=== PATIENT | female | born 1940 | race Caucasian/White ===

== ENCOUNTER → 2017-07-02 10:40 | Outpatient (CLI) | payer MEDICARE, SELFPAY ==
--- NOTE | 2017-07-02 10:46 | CDU_ITS ---
Reason For Study: Carotid stenosis Rt. Velocities/BP Lt. Velocities/BP Prox CCA 93.5/14.7 cm/sec. Prox CCA 119.0/18.9 cm/sec. Mid CCA 103.0/20.2 cm/sec. Mid CCA 108.0/18.9 cm/sec. Dist CCA 126.0/33.0 cm/sec. Dist CCA 113.0/18.1 cm/sec. Prox ICA 85.0/16.4 cm/sec. Prox ICA 141.0/23.6 cm/sec. Mid ICA 93.3/19.9 cm/sec. Mid ICA 100.0/19.6 cm/sec. Dist ICA 115.0/26.1 cm/sec. Dist ICA 121.0/24.1 cm/sec. Rt. ICA/CCA = .91. Lt. ICA/CCA = 1.3. Prox ECA 185.0/21.6 cm/sec. Prox ECA 317.0/31.4 cm/sec. Rt. Vert. 67.6/14.1 cm/sec. Lt. Vert. 58.9/14.1 cm/sec. Right Extracranial There is homogeneous, irregular atherosclerotic plaque noted in the right common carotid artery. There is heterogeneous, irregular atherosclerotic plaque noted in the right internal carotid artery. There is homogeneous, smooth atherosclerotic plaque noted in the right external carotid artery. Antegrade flow is noted in the right vertebral artery. Left Extracranial There is intimal thickening but no significant atherosclerotic plaque noted in the left common carotid artery. There is heterogeneous, irregular atherosclerotic plaque noted in the left internal carotid artery. There is heterogeneous, irregular atherosclerotic plaque noted in the left external carotid artery. Antegrade flow is noted in the left vertebral artery. Procedure Carotid Duplex [id number]. Exam performed in department. Interpretation Summary Mild (<50%) stenosis right extracranial internal carotid. Mild (<50%) stenosis left extracranial internal carotid. Flow within the vertebral arteries is antegrade bilaterally. Elevated velocities within the left external carotid artery are suggestive of stenosis. Ordering Physician: Tito Goldsmith Referring Physician: Tito Goldsmith Performed By: Christi Rivera RVT
== END ==
PROVIDERS: Family Provider Family Medicine; PCP Family Medicine; Visit Provider Ophthalmology
DX: I65.23 Occlusion and stenosis of bilateral carotid arteries (principal)
CPT/HCPCS: 93880

== ENCOUNTER 2021-07-14 13:43 | Outpatient (CLI) | payer MEDICARE, SELFPAY ==
[2021-07-14 14:26] LABS: Absolute Lymphocyte Count 2.12 X10^3/uL (0.83-4.51); Absolute Neutrophil Count 6.8 X10^3/uL (2.0-7.7); Basophil# 0.08 X10^3/uL; Basophil% 0.8 % (0-1); Hematocrit 36.6 % (37-47); Hemoglobin 12.9 g/dL (12.0-15.0); Lymphocyte # 2.12 X10^3/ul (0.83-4.51); Lymphocyte % 20.9 % (19-41); Mean Corp Hgb Conc 35.2 g/dL (32-36); Mean Corpuscular Hgb 33.9 pg (27.0-32.0); Mean Corpuscular Volume 96.1 fL (81-99); Mean Platelet Vol. 9.9 fl (6.2-12.0); Monocyte# 0.78 X10^3/uL; Monocyte% 7.7 % (0-10); NRBC Flagged by Analyzer 0 % (0-5); Neutrophil % 67.2 % (47-70); Platelet Count 345 K/mm3 (150-450); RBC Distribution Width CV 13.8 % (11.6-14.6); RBC Distribution Width SD 48.8 fl (35.1-43.9); Red Blood Count 3.81 M/mm3 (4.2-5.4); White Blood Count 10.1 K/mm3 (4.4-11.0)
[2021-07-14 14:58] LABS: Anion Gap 5 (5-15); BUN 19 mg/dL (7-18); Calcium,Total 9.5 mg/dL (8.5-10.1); Chloride 109 mmol/L (98-107); Creatinine, Serum 0.86 mg/dL (0.55-1.02); EST Glomerular Filtration Rate 67 mL/min (>60); Est Glom Filt Rate - Afr Amer 81 mL/min (>60); Glucose 123 mg/dL (74-106); Potassium 3.6 mmol/L (3.5-5.1); Sodium Level 141 mmol/L (136-145)
== END 2021-07-14 23:59 | disposition home or self-care (01) ==
PROVIDERS: PCP Family Medicine; Visit Provider Specialist
DX: Z01.818 Encounter for other preprocedural examination (principal)
CPT/HCPCS: 36415; 80048; 85025

== ENCOUNTER 2022-01-22 06:17 | Observation (INO) | payer MEDICARE, SELFPAY ==
[2022-01-22] VITALS (11 sets, daily range): BP systolic 123–199; BP diastolic 60–104; PULSE 69–100; RESP 14–18; TEMP 36.5–37; O2SAT 94–100; BMI 27.8
--- NOTE | 2022-01-22 06:32 | EDS_ITS ---
HPI History of Present Illness Chief Complaint: Chest Pain Informant: patient Onset/Context/Timing Onset: Weeks (3 weeks) Timing: Intermittent Quality: Positive for Tightness Location: Substernal Current Severity: Gone Maximum Severity: Moderate Narrative Narrative: Patient presents secondary to chest pain. She states been having pain for the last 3 weeks or was worse overnight. She does notice it when she is active such as walking up a hill. She will get short of breath and break out a slight sweat. Symptoms improve when she sits at rest. Patient is tearful and anxious about her symptoms. She did not denies known history of coronary vascular disease. She does have a history of paroxysmal A. fib but is not on anticoagulants. [facility] Medical History Atrial fibrillation Collagen vascular disease Hypertension Hypothyroidism Raynauds disease Home Medications alendronate 70 mg tablet 70 mg PO QWEEK 01/22/22 [History Last Taken Unknown] aspirin 81 mg chewable tablet 81 mg PO DAILY 01/22/22 [History Last Taken Unknown] calcium carbonate 600 mg-vitamin D3 5 mcg (200 unit) tablet tab 01/22/22 [History Last Taken Unknown] famotidine 40 mg tablet 40 mg PO QHS 01/22/22 [History Last Taken Unknown] levothyroxine 25 mcg tablet (Synthroid) 25 mcg PO DAILY 01/22/22 [History Last Taken Unknown] metoprolol succinate 25 mg tablet,extended release 24 hr 25 mg PO DAILY 01/22/22 [History Last Taken Unknown] pantoprazole 40 mg tablet,delayed release 40 mg PO DAILY 01/22/22 [History Last Taken Unknown] red yeast rice 600 mg capsule 600 mg PO BID 01/22/22 [History Last Taken Unknown] Allergy/AdvReac Type Severity Reaction Status Date / Time iodine Allergy Unknown Verified 01/22/22 06:21 Sulfa (Sulfonamide Allergy Unknown Verified 01/22/22 06:21 Antibiotics) seafood Allergy Other Uncoded 10/17/13 18:56 Social History Smoking Status: Never smoker ROS ROS ED Constitutional Constitutional ED: Denies chills or fever(s) Eyes Eyes: Denies change in vision or discharge from eye(s) ENT ENT ED: Denies discharge from eye(s), rhinorrhea or sore throat Cardiovascular Cardiovascular: Reports chest pain; Denies palpitations Respiratory/Chest Respiratory/Chest: Reports dyspnea; Denies cough Gastrointestinal Gastrointestinal: Denies abdominal pain, nausea or vomiting Genitourinary Genitourinary ED: Denies dysuria Musculoskeletal Musculoskeletal: Denies back pain or extremity pain Integumentary Denies Abrasions or rash Neurologic Neurologic: Denies headache(s) or weakness Psychiatric Psychiatric: Reports anxiety Allergic/Immunologic Allergic/Immunologic ED: Denies lip swelling or urticaria EXAM Physical Exam Const Vital Signs: 01/22/22 06:18 01/22/22 06:40 Temperature 97.9 F Temperature Source Temporal Pulse Rate 100 Respiratory Rate 16 Blood Pressure 185/71 H Blood Pressure Mean 109 Pulse Ox 94 Oxygen Delivery Method Room Air Room Air Positive well nourished and well developed General Appearance ED: well developed HEENT Reports normocephalic and head/scalp atraumatic Eyes PERRL and EOMs intact bilaterally Neck supple Chest Wall inspection of chest normal and palpation of chest normal Resp normal respiratory effort and clear to auscultation bilaterally Cardio regular rate and regular rhythm GI normal to inspection, nondistended, normoactive bowel sounds Palpation: soft Extremity normal to inspection Neuro oriented x3 and no sensory deficits noted Sensorium / Orientation: alert Motor Exam: strength 5/5 throughout Psych Mood & Affect: anxious and tearful Skin no rashes or lesions noted Heart Score History: Moderately Suspicious ECG: Nonspecific Repolarization Age: >/= 65 years Risk Factors: 1 or 2 Risk Factors Troponin: </= Normal Limit Score: 5 MDM MDM MDM Narrative Medical decision making narrative: Patient was given aspirin along with 5 mg of IV metoprolol on arrival. Lab work, EKG, chest x-ray obtained. Lab Data Attestation: I reviewed the patient's lab results. Labs: Laboratory Results - last 24 hr 01/22/22 01/22/22 06:28 06:28 WBC 11.6 H RBC 4.13 L Hgb 13.4 Hct 40.5 MCV 98.1 MCH 32.4 H MCHC 33.1 RDW Std Deviation 51.1 H RDW Coeff of Ranjeet 14.3 Plt Count 384 MPV 9.9 Immature Gran % (Auto) 0.600 Neut % (Auto) 67.2 Lymph % (Auto) 19.5 [place] % (Auto) 7.9 Eos % (Auto) 4.0 Baso % (Auto) 0.8 Absolute Neuts (auto) 7.8 H Absolute Lymphs (auto) 2.26 Nucleated RBC % 0 Sodium 140 Potassium 3.9 Chloride 105 Carbon Dioxide 27.0 Anion Gap 8 BUN 14 Creatinine 1.06 H Estim Creat Clear Calc 32.36 Est GFR (MDRD) Af Amer 64 Est GFR (MDRD) Non-Af 53 L BUN/Creatinine Ratio 13.2 Glucose 118 H Calcium 9.1 Troponin I High Sens 8 Radiography Chest X-Ray - ED: 1 View, Read by ED Physician, Normal, Heart, Lungs and Mediastinum Diagnostic Testing: Clinical Impression(s) from Imaging Studies Chest X-Ray 01/22/22 06:42 IMPRESSION: No acute cardiopulmonary disease. Electronically Signed: Luis Aguilar MD at 7:05 EDT Reading Location ID and State: [id number] / , Service support , EKG Initial EKG: Attestation: I personally reviewed and interpreted this EKG as follows: Interpretation: Sinus Rhythm (Sinus at [address] depression in the high lateral and lateral precordial leads. No old EKGs for comparison.) Treatment and Re-Evaluation Narrative: On repeat evaluation patient resting comfortably. She remains tearful and anxious. Systolic blood pressure is now in the 150s. CBC reveals a white count of 11.6. Chemistry studies unremarkable. Troponin is 8. Sounds like patient had stable angina for the first 2-2.5 weeks of her symptoms. She would get chest pain with exertion such as walking up a hill and it would resolve when she would sit to rest. Last evening she had chest pain all night with no enticing event. I am concerned that this may now be representing unstable angina. With her EKG changes I have recommended observation for further cardiac rule out. I will speak with the hospitalist. Discharge Plan Triage Chief Complaint: Chest Pain ED Provider: Indira Ramos Dx/Rx/DC Orders Clinical Impression: Angina pectoris, unstable Prescriptions: No Action pantoprazole 40 mg Tablet,Delayed Release (Dr/Ec) 40 mg PO DAILY famotidine 40 mg Tablet 40 mg PO QHS alendronate 70 mg Tablet 70 mg PO QWEEK calcium carbonate-vitamin D3 [Calcium + D] 600 mg-5 mcg (200 unit) Tablet levothyroxine [Synthroid] 25 mcg Tablet 25 mcg PO DAILY aspirin [Aspirin Child] 81 mg Tablet,Chewable 81 mg PO DAILY metoprolol succinate 25 mg Tablet Extended Release 24 Hr 25 mg PO DAILY red yeast rice 600 mg Capsule 600 mg PO BID Rx Instructions: give with meal/snack Primary Care Provider: Viky Givens Referrals: Viky Givens DO [Primary Care Provider] - Disposition Disposition: Acute Care Hospital [facility]
[2022-01-22 06:39] LABS: Absolute Lymphocyte Count 2.26 X10^3/uL (0.83-4.51); Absolute Neutrophil Count 7.8 X10^3/uL (2.0-7.7); Basophil# 0.09 X10^3/uL; Basophil% 0.8 % (0-1); Eosinophil# 0.46 X10^3/uL; Hematocrit 40.5 % (37-47); Hemoglobin 13.4 g/dL (12.0-15.0); Lymphocyte # 2.26 X10^3/ul (0.83-4.51); Lymphocyte % 19.5 % (19-41); Mean Corp Hgb Conc 33.1 g/dL (32-36); Mean Corpuscular Hgb 32.4 pg (27.0-32.0); Mean Corpuscular Volume 98.1 fL (81-99); Mean Platelet Vol. 9.9 fl (6.2-12.0); Monocyte# 0.92 X10^3/uL; Monocyte% 7.9 % (0-10); NRBC Flagged by Analyzer 0 % (0-5); Neutrophil # 7.81 X10^3/uL (2.7-7.7); Neutrophil % 67.2 % (47-70); Platelet Count 384 K/mm3 (150-450); RBC Distribution Width CV 14.3 % (11.6-14.6); RBC Distribution Width SD 51.1 fl (35.1-43.9); Red Blood Count 4.13 M/mm3 (4.2-5.4); White Blood Count 11.6 K/mm3 (4.4-11.0)
--- NOTE | 2022-01-22 06:42 | RAD_ITS ---
STUDY: X-RAY CHEST REASON FOR EXAM: Female, 82 years old. chest pain TECHNIQUE: Single AP portable view of the chest. COMPARISON: None. FINDINGS: No focal infiltrates or effusions. No pneumothorax. Normal size heart. Normal mediastinum and jignesh. Normal visualized pulmonary arteries. Normal visualized aortic arch and descending thoracic aorta. Multilevel degenerative changes of the thoracic spine. Normal visualized ribs, clavicles, and shoulders. There is no demonstrated abnormality of the visualized soft tissue structures of the upper abdomen. RAD/Chest 1 View (Portable) IMPRESSION: No acute cardiopulmonary disease. Electronically Signed: Luis Aguilar MD at 7:05 EDT Reading Location ID and State: [id number] / , Service support ,
[2022-01-22] MEDS: Metoprolol Tartrate 5 MG/5 ML Vial IV (06:47)
[2022-01-22] MEDS: Aspirin 81 MG TAB.CHEW 324 MG PO (06:47)
[2022-01-22 06:56] LABS: Anion Gap 8 (5-15); BUN 14 mg/dL (7-18); BUN/Creat Ratio 13.2 RATIO (10-20); Calcium,Total 9.1 mg/dL (8.5-10.1); Chloride 105 mmol/L (98-107); Creatinine, Serum 1.06 mg/dL (0.55-1.02); EST Glomerular Filtration Rate 53 mL/min (>60); Est Glom Filt Rate - Afr Amer 64 mL/min (>60); Estimated Creatinine Clearance 32.36 ml/min; Glucose 118 mg/dL (74-106); Potassium 3.9 mmol/L (3.5-5.1); Sodium Level 140 mmol/L (136-145); Troponin-I HS (w/2H Reflex) 8 pg/mL (3.0-54.0)
--- NOTE | 2022-01-22 07:40 | NURSING ---
PCU OBS CHEST PAIN [facility]
--- NOTE | 2022-01-22 08:24 | PCM.HP.STD ---
[facility] - General General Date of Admission: 01/22/22 Date of Service: 01/22/22 Chief Complaint: Chest pain?3 weeks, worsening on the day of admission HPI Narrative ROBERTO CARCAMO, is a 82 F who presents presents with the above. Patient has PMHX of collagen vascular disease, hypertension who has had substernal chest discomfort ongoing for 3 weeks. Chest discomfort usually radiates to the back and the arms, last for few minutes. On the night before admission, she had the same chest pain that came on around 1 AM and lasted till 3 AM. It felt like bad indigestion. She felt diaphoretic. Denied any palpitations or leg swelling orthopnea or PND. In the ED, her blood pressure was 185/71, heart rate 100, respiratory 16, temperature 97.9 F, oxygen sat was 94% on room air. WC count 11.6, hemoglobin 13.4, platelets 384, neutrophilia, sodium 140, potassium 3.9, chloride 105, bicarbonate 27, BUN 40, creatinine 1.06, previous creatinine was 0.84, glucose 118. Troponin was 8 and 9. Third troponin was pending. EKG shows no ST-T changes. Admitting chest x-ray showed no acute cardiopulmonary disease. [facility] Medical History (Updated 01/22/22 @ 13:[address] Marian Prakash MD) Atrial fibrillation Chest pain Collagen vascular disease Hypertension Hypothyroidism Raynauds disease Home Medications alendronate 70 mg tablet 70 mg PO QWEEK 01/22/22 [History Last Taken Unknown] aspirin 81 mg chewable tablet 81 mg PO DAILY 01/22/22 [History Last Taken Unknown] calcium carbonate 600 mg-vitamin D3 5 mcg (200 unit) tablet tab 01/22/22 [History Last Taken Unknown] famotidine 40 mg tablet 40 mg PO QHS 01/22/22 [History Last Taken Unknown] levothyroxine 25 mcg tablet (Synthroid) 25 mcg PO DAILY 01/22/22 [History Last Taken Unknown] metoprolol succinate 25 mg tablet,extended release 24 hr 25 mg PO DAILY 01/22/22 [History Last Taken Unknown] pantoprazole 40 mg tablet,delayed release 40 mg PO DAILY 01/22/22 [History Last Taken Unknown] red yeast rice 600 mg capsule 600 mg PO BID 01/22/22 [History Last Taken Unknown] Allergy/AdvReac Type Severity Reaction Status Date / Time iodine Allergy Unknown Verified 01/22/22 06:21 Sulfa (Sulfonamide Allergy Unknown Verified 01/22/22 06:21 Antibiotics) seafood Allergy Other Uncoded 10/17/13 18:56 Family History (Updated 01/22/22 @ 13:[address] Marian Prakash MD) Mother Hypertension Surgical History (Updated 01/22/22 @ 13:[address] Marian Prakash MD) H/O foot surgery History of section History of cholecystectomy History of hip surgery Social History (Updated 01/22/22 @ 13:[address] Marian Prakash MD) household members: spouse Smoking Status: Never smoker alcohol intake: never substance use type: does not use ROS ROS Narrative Constitutional: Denies: Anorexia, Chills, Fever, Night Sweats, Weight Change Eyes: Denies: Blurred vision, Cataracts, Conjunctivae Inflammation, Pain, Redness, Vision Change HEENT: Denies: Difficulty Hearing, Difficulty Swallowing, Head Aches, Hearing Changes, Sinus Congestion, Sinus Drainage Cardiovascular: Denies: Chest Pain, Orthopnea, Palpitations Respiratory: Denies: Cough, Shortness of breath at rest, Sputum production Gastrointestinal: Denies: Abdominal Pain, Nausea, Vomiting Genitourinary: Denies: Dysuria Musculoskeletal: Denies: Joint Pain, Joint stiffness, Joint swelling, Joint Tenderness Skin: Denies: Rash, Wounds Neurological: Denies: Numbness, Tingling, Focal weakness Vital Signs Vital Signs Vital Signs: 01/22/22 06:18 01/22/22 06:40 01/22/22 07:30 Temperature 97.9 F 98.2 F Temperature Source Temporal Oral Pulse Rate 100 77 Respiratory Rate 16 18 Blood Pressure 185/71 H 162/71 H Blood Pressure Mean 109 101 Pulse Ox 94 100 Oxygen Delivery Method Room Air Room Air Room Air Weight Weight: 68.9 kg Body Mass Index (BMI) 27.8 Physical Exam Narrative Physical exam: General: Alert, Oriented x3, Cooperative, No apparent distress HEENT: Atraumatic Oral: Moist Mucosa Neck: Supple Lungs: Clear to auscultation Cardiovascular: HS I+II, regular, no murmurs Abdomen: Bowel Sounds Present, Soft, Non Tender Extremities: No edema Skin: No rashes, No breakdown Neurological: Grossly intact Psych/Mental Status: Appropriate Results Lab / Micro Data Result Diagrams: 01/22/22 06:28 01/22/22 06:28 Labs: Laboratory Results - last 24 hr 01/22/22 06:28: WBC 11.6 H, RBC 4.13 L, Hgb 13.4, Hct 40.5, MCV 98.1, MCH 32.4 H, MCHC 33.1, RDW Std Deviation 51.1 H, RDW Coeff of Ranjeet 14.3, Plt Count 384, MPV 9.9, Immature Gran % (Auto) 0.600, Neut % (Auto) 67.2, Lymph % (Auto) 19.5, [place] % (Auto) 7.9, Eos % (Auto) 4.0, Baso % (Auto) 0.8, Absolute Neuts (auto) 7.8 H, Absolute Lymphs (auto) 2.26, Nucleated RBC % 0 01/22/22 06:28: Sodium 140, Potassium 3.9, Chloride 105, Carbon Dioxide 27.0, Anion Gap 8, BUN 14, Creatinine 1.06 H, Estim Creat Clear Calc 32.36, Est GFR (MDRD) Af Amer 64, Est GFR (MDRD) Non-Af 53 L, BUN/Creatinine Ratio 13.2, Glucose 118 H, Calcium 9.1, Troponin I High Sens 8 Radiology Impression Chest X-Ray 01/22/22 06:42 IMPRESSION: No acute cardiopulmonary disease. Electronically Signed: Luis Aguilar MD at 7:05 EDT Reading Location ID and State: [id number] / , Service support , Assessment & Plan Assessment/Plan (1) Chest pain: PLAN: Plan 1. Acute chest pain, atypical, ongoing for 3 weeks, worse on the day of admission EKG shows no ST-T changes, troponins unremarkable Chest x-ray unremarkable Admit to PCU, monitor on telemetry, trend troponin, stress test in a.m. 2. Hypertension, uncontrolled on continue metoprolol 3. Hypothyroidism, continue Synthroid 4. GERD, on PPI 5. Osteoporosis, on alendronate 6. Collagen vascular disease, not on medication 7. DVT prophylaxis -heparin subcu Charges/Coding Visit Charges OBSV E&M: 40977 Initial observation care L3
[2022-01-22 08:36] LABS: Reflex Troponin-HS? (from REC) Y
[2022-01-22 09:17] LABS: Troponin-I HS 9 pg/mL (3.0-54.0)
[2022-01-22] MEDS: Metoprolol(XL)Succ 25 MG Tablet PO (09:19)
[2022-01-22] MEDS: Pantoprazole Sodium 40 MG Tablet PO ×2 (09:20→22:02)
--- NOTE | 2022-01-22 11:04 | EKG12_ITS ---
Test Reason : AM EKG Blood Pressure : / mmHG Vent. Rate : 067 BPM Atrial Rate : 067 BPM P-R Int : 144 ms QRS Dur : 110 ms QT Int : 398 ms P-R-T Axes : 032 002 145 degrees QTc Int : 420 ms Normal sinus rhythm Left ventricular hypertrophy with repolarization abnormality ( R in aVL , [place] product ) Abnormal ECG When compared with ECG of 22-JAN-2022 11:21, MANUAL COMPARISON REQUIRED, DATA IS UNCONFIRMED Confirmed by TIANA CAZARES, MARIZA ([id number]), purchase request editor EMERITA CARL ([id number]) on 01/24/2022 12:41:51 PM Referred By: Confirmed By:MARIZA MONTIEL MD
[2022-01-22 13:09] LABS: Troponin-I HS 9 pg/mL (3.0-54.0)
[2022-01-22] MEDS: Heparin Injection (Vial) 5,000 UNIT/ML VIAL 5000 UNIT SC (22:03)
[2022-01-23] VITALS (7 sets, daily range): BP systolic 138–157; BP diastolic 52–66; PULSE 63–78; RESP 16–18; TEMP 36.4–36.7; O2SAT 97–98
--- NOTE | 2022-01-23 05:55 | EKG12_ITS ---
Test Reason : ADMITT CP Blood Pressure : / mmHG Vent. Rate : 065 BPM Atrial Rate : 065 BPM P-R Int : 134 ms QRS Dur : 092 ms QT Int : 416 ms P-R-T Axes : 022 004 072 degrees QTc Int : 432 ms Normal sinus rhythm Left ventricular hypertrophy with repolarization abnormality ( [place] product ) Abnormal ECG When compared with ECG of 22-JAN-2022 06:18, MANUAL COMPARISON REQUIRED, DATA IS UNCONFIRMED Confirmed by TIANA CAZARES, MARIZA ([id number]), marketing editor EMERITA CARL ([id number]) on 01/24/2022 12:42:16 PM Referred By: SAM Confirmed By:MARIZA MNOTIEL MD
[2022-01-23] MEDS: Aspirin 81 MG TAB.CHEW PO (06:03)
[2022-01-23] MEDS: Levothyroxine 25 MCG TABLET PO (06:03)
[2022-01-23 06:38] LABS: Absolute Lymphocyte Count 1.78 X10^3/uL (0.83-4.51); Absolute Neutrophil Count 4.3 X10^3/uL (2.0-7.7); Basophil# 0.07 X10^3/uL; Eosinophil# 0.44 X10^3/uL; Eosinophils% 6.2 % (0-5); Hemoglobin 12.6 g/dL (12.0-15.0); Lymphocyte # 1.78 X10^3/ul (0.83-4.51); Mean Corp Hgb Conc 32.3 g/dL (32-36); Mean Corpuscular Hgb 32.4 pg (27.0-32.0); Mean Corpuscular Volume 100.3 fL (81-99); Mean Platelet Vol. 10.3 fl (6.2-12.0); Monocyte# 0.55 X10^3/uL; Monocyte% 7.7 % (0-10); NRBC Flagged by Analyzer 0 % (0-5); Neutrophil # 4.25 X10^3/uL (2.7-7.7); Neutrophil % 59.7 % (47-70); Platelet Count 331 K/mm3 (150-450); RBC Distribution Width CV 14.5 % (11.6-14.6); RBC Distribution Width SD 52.9 fl (35.1-43.9); Red Blood Count 3.89 M/mm3 (4.2-5.4); White Blood Count 7.1 K/mm3 (4.4-11.0)
[2022-01-23 07:20] LABS: ALB/GLOB Ratio 0.7 RATIO (0.9-2.4); AST(SGOT) 21 U/L (15-37); Alanine Aminotransfer ALT/SGPT 24 U/L (13-56); Albumin, Serum 2.7 g/dL (3.2-5.0); Alkaline Phosphatase 45 U/L (45-117); Anion Gap 7 (5-15); BUN 15 mg/dL (7-18); BUN/Creat Ratio 17.1 RATIO (10-20); Calcium,Total 9.1 mg/dL (8.5-10.1); Chloride 108 mmol/L (98-107); Creatinine, Serum 0.88 mg/dL (0.55-1.02); EST Glomerular Filtration Rate 66 mL/min (>60); Est Glom Filt Rate - Afr Amer 79 mL/min (>60); Estimated Creatinine Clearance 38.98 ml/min; Globulin 4.1 g/dL (2.2-4.2); Glucose 90 mg/dL (74-106); Protein, Total 6.8 g/dL (6.4-8.2); Sodium Level 141 mmol/L (136-145)
[2022-01-23] MEDS: Pantoprazole Sodium 40 MG Tablet PO (09:23)
[2022-01-23] MEDS: Metoprolol(XL)Succ 25 MG Tablet PO (09:23)
--- NOTE | 2022-01-23 13:04 | STRESSREP ---
Stress Test Report Exercise stress test. 82-year-old lady with a history of chest pain. Stress protocol: Resting EKG demonstrates normal sinus rhythm with a rate of 76 bpm normal intervals are noted resting blood pressure is 168/70 mmHg. The patient exercised according to the regular David protocol for total duration of 3 minutes and 39 seconds. The maximum heart rate attained was 1 and 39 bpm which was 96% of max impacted heart rate the maximum workload was 6.1 metabolic equivalents. At rest there were no ST or T wave changes noted to suggest ischemia and at peak exercise upsloping ST changes were noted with did not meet the criteria for ischemia. No arrhythmias were noted. The peak blood pressure was 168/70 mmHg. The test was terminated due to target heart rate being achieved. Conclusion: Stress test with no EKG criteria for ischemia at a moderate workload. Good functional capacity.
--- NOTE | 2022-01-23 14:09 | DCINST_ITS ---
Discharge Instructions Diet Discharge Diet: Low fat / Low cholesterol Activity Discharge Activity: Return to Normal Activity Dressing / Incision Call your doctor if you observe: Fever of 101 or Higher, Shortness of breath, Chest pain, Increased palpitations (irregular heartbeat) and Uncontrolled pain Follow Up Care Test Results: Test results from this visit will be discussed in further detail at your follow- up appointment, if applicable. Discharge Plan Admission Admit Date/Time: 01/22/22 07:42 Primary Reason for Your Visit: Chest pain Attending Provider: Andra Mondragon Primary Care Provider: Viky Givens Consulting Providers: Marian Prakash ; Vi Rubio Instructions Patient Instructions: ED Chest Pain, Noncardiac, ED GERD (Adult) Additional Instructions / Restrictions: You had a stress test that did not show any concerning findings. Please follow up with your primary care physician within 1 week of discharge. Continue your home medications. Discharge Orders/Prescriptions Prescriptions: Continued pantoprazole 40 mg Tablet,Delayed Release (Dr/Ec) 40 mg PO DAILY famotidine 40 mg Tablet 40 mg PO QHS alendronate 70 mg Tablet 70 mg PO QWEEK calcium carbonate-vitamin D3 600 mg-5 mcg (200 unit) Tablet levothyroxine [Synthroid] 25 mcg Tablet 25 mcg PO DAILY aspirin 81 mg Tablet,Chewable 81 mg PO DAILY metoprolol succinate 25 mg Tablet Extended Release 24 Hr 25 mg PO DAILY red yeast rice 600 mg Capsule 600 mg PO BID Rx Instructions: give with meal/snack Referrals / Follow Up: Viky Givens DO [Primary Care Provider] - (Follow up with PCP upon discharge, within 1 week) Disposition Disposition (needs filled in before D/C Order can be placed): Home, Self Care
--- NOTE | 2022-01-23 14:09 | CASEMGMT ---
This RN OSWALDO to room with JENSEN form, explanation done-pt voices understanding, and signs JENSEN form. Original to chart and copy to pt. Pt voices no further questions/concerns/needs. [place] DANNA CM
--- NOTE | 2022-01-23 14:17 | PCM.DC.SUM ---
Providers Date of Admission: 01/22/22 Primary Care Physician: Dr. Viky Givens, DO Reason For Visit: CHEST PAIN Diagnosis Discharge Diagnosis (1) Chest pain: Status: Acute Code(s): R07.9 - Chest pain, unspecified Medications at Discharge Home Medications alendronate 70 mg tablet 70 mg PO QWEEK 01/22/22 aspirin 81 mg chewable tablet 81 mg PO DAILY 01/22/22 calcium carbonate 600 mg-vitamin D3 5 mcg (200 unit) tablet tab 01/22/22 famotidine 40 mg tablet 40 mg PO QHS 01/22/22 levothyroxine 25 mcg tablet (Synthroid) 25 mcg PO DAILY 01/22/22 metoprolol succinate 25 mg tablet,extended release 24 hr 25 mg PO DAILY 01/22/22 pantoprazole 40 mg tablet,delayed release 40 mg PO DAILY 01/22/22 red yeast rice 600 mg capsule 600 mg PO BID 01/22/22 Hospital Course Procedures - (Exercise stress test) Summary of Care Provided Hospital Course: Ms. Samuel is an 82 y/o female with pmh of raynauds, HTN, hypothyroidism, and HTN as well as GERD who presented to [facility] 01/22/22 with 3 weeks of CP that would go to back and arms and would last x3 minutes. Reported indigestion and diaphoresis as well. She presented due to increasing frequency of symptoms. She reports she was started on red yeast rice around the same time her symptoms started and thinks it may be that but wants to verify there was nothing else going on. She reports she only had a couple seconds of chest discomfort overnight that had no associated factors. She denies and changes in breathing, intermittent tickle in throat with weather change but no productivity in her cough. She had stress test 01/23 in the AM and there were no significant findings. Pt symptom free and discharged home in stable condition to f/u with her PCP. Discussed possible differential and she did report she already follows with GI and has had problems with reflux for years. Discussed best way to take PPI and to discuss with her physician about red yeast rice. Advised to return to the ED with any concerning signs or symptoms. Andra Mondragon MD. I personally spent 30 minutes on this discharge Physical Exam Const alert and oriented x3 General Appearance: cooperative and comfortable HEENT normocephalic and head/scalp atraumatic Eyes EOMs intact bilaterally Neck supple Resp normal respiratory effort and clear to auscultation bilaterally Cardio regular rate and regular rhythm GI soft to palpation, non-tender and non-distended Extremity normal to inspection Skin no rashes or lesions noted Neuro moves all extremities Psych affect normal Weight / BMI Weight Weight: 68.9 kg Body Mass Index (BMI) 27.8 ABG / Lab / Microbiology Data Result Diagrams: 01/23/22 05:26 01/23/22 05:26 Laboratory: Laboratory Results - last 24 hr 01/23/22 05:26: WBC 7.1, RBC 3.89 L, Hgb 12.6, Hct 39.0, MCV 100.3 H, MCH 32.4 H, MCHC 32.3, RDW Std Deviation 52.9 H, RDW Coeff of Ranjeet 14.5, Plt Count 331, MPV 10.3, Immature Gran % (Auto) 0.400, Neut % (Auto) 59.7, Lymph % (Auto) 25.0, Forrest % (Auto) 7.7, Eos % (Auto) 6.2 H, Baso % (Auto) 1.0, Absolute Neuts (auto) 4.3, Absolute Lymphs (auto) 1.78, Nucleated RBC % 0 01/23/22 05:26: Sodium 141, Potassium 4.0, Chloride 108 H, Carbon Dioxide 26.0, Anion Gap 7, BUN 15, Creatinine 0.88, Estim Creat Clear Calc 38.98, Est GFR (MDRD) Af Amer 79, Est GFR (MDRD) Non-Af 66, BUN/Creatinine Ratio 17.1, Glucose 90, Calcium 9.1, Total Bilirubin 0.40, AST 21, ALT 24, Alkaline Phosphatase 45, Total Protein 6.8, Albumin 2.7 L, Globulin 4.1, Albumin/Globulin Ratio 0.7 L D/C Instructions Discharge Diet: Low fat / Low cholesterol Call your doctor if you observe: Fever of 101 or Higher, Shortness of breath, Chest pain, Increased palpitations (irregular heartbeat) and Uncontrolled pain Meaningful Use Info Meaningful Use Diagnoses (Choose all that apply): None applicable (Non ischemic chest pain) Discharge Plan Admission Admit Date/Time: 01/22/22 07:42 Primary Reason for Your Visit: Chest pain Attending Provider: Andra Mondragon Primary Care Provider: Viky Givens Consulting Providers: Marian Prakash ; Vi Rubio Instructions Patient Instructions: ED Chest Pain, Noncardiac, ED GERD (Adult) Additional Instructions / Restrictions: You had a stress test that did not show any concerning findings. Please follow up with your primary care physician within 1 week of discharge. Continue your home medications. Discharge Orders/Prescriptions Prescriptions: Continued pantoprazole 40 mg Tablet,Delayed Release (Dr/Ec) 40 mg PO DAILY famotidine 40 mg Tablet 40 mg PO QHS alendronate 70 mg Tablet 70 mg PO QWEEK calcium carbonate-vitamin D3 600 mg-5 mcg (200 unit) Tablet levothyroxine [Synthroid] 25 mcg Tablet 25 mcg PO DAILY aspirin 81 mg Tablet,Chewable 81 mg PO DAILY metoprolol succinate 25 mg Tablet Extended Release 24 Hr 25 mg PO DAILY red yeast rice 600 mg Capsule 600 mg PO BID Rx Instructions: give with meal/snack Referrals / Follow Up: Viky Givens DO [Primary Care Provider] - (Follow up with PCP upon discharge, within 1 week) Disposition Disposition (needs filled in before D/C Order can be placed): Home, Self Care
--- NOTE | 2022-01-23 14:29 | CHAPLAIN ---
Type of Pastoral Visit _x__ Initial Visit ___ Follow-up Visit ___ On-call Visit ___ General Patient Visit ___ Spiritual Assessment ___ Family Conference ___ Bereavement ___ Rapid Response ___ Code Blue ___ Other (describe below) Pastoral Care Referral From _x__ Patient ___ Family ___ Nurse ___ Physician ___ Tablet Coater ___ Database Development Project Manager ___ Other (describe below) Sacrament/Intervention _x__ Active listening ___ Anointing ___ Muslim ___ Bereavement ___ Communion ___ Samantha exploration ___ _x__ Life review _x__ Prayer ___ Reconciliation ___ Sacrament of Sick ___ Supportive presence ___ Wedding ___ Other (describe below) Pastoral Comments patient and spouse are together in room; pt states that she is just waiting for answers from the tests she has taken; pt explains some of the last three weeks of discomfort and possible stress; patient identifies as a person of samantha in God and welcomes spiritual care support and prayer; pt talks about her family and her buddhist; no other concerns
--- NOTE | 2022-01-23 14:34 | PHA.DC.MR ---
Pharmacy Service has performed discharge medication reconciliation for this patient. The patient's discharge medication list was reviewed for discrepancies and discrepancies were resolved. Home Medications alendronate 70 mg tablet 70 mg PO QWEEK 01/22/22 aspirin 81 mg chewable tablet 81 mg PO DAILY 01/22/22 calcium carbonate 600 mg-vitamin D3 5 mcg (200 unit) tablet tab 01/22/22 famotidine 40 mg tablet 40 mg PO QHS 01/22/22 levothyroxine 25 mcg tablet (Synthroid) 25 mcg PO DAILY 01/22/22 metoprolol succinate 25 mg tablet,extended release 24 hr 25 mg PO DAILY 01/22/22 pantoprazole 40 mg tablet,delayed release 40 mg PO DAILY 01/22/22 red yeast rice 600 mg capsule 600 mg PO BID 01/22/22
== END 2022-01-23 14:11 | disposition home or self-care (01) ==
LOC: ED 07:18 → PCU 07:42
PROVIDERS: Admitting Provider Internal Medicine; Emergency Provider Emergency Medicine; PCP Family Medicine; Visit Provider Internal Medicine
DX: R07.89 Other chest pain (principal); I48.0 Paroxysmal atrial fibrillation; I10 Essential (primary) hypertension; Z79.83 Long term (current) use of bisphosphonates; Z79.82 Long term (current) use of aspirin; Z79.899 Other long term (current) drug therapy; E03.9 Hypothyroidism, unspecified; Z79.890 Hormone replacement therapy; K21.9 Gastro-esophageal reflux disease without esophagitis; I73.00 Raynaud's syndrome without gangrene; M81.0 Age-related osteoporosis without current pathological fracture
CPT/HCPCS: 36415; 71045; 80048; 80053; 84484; 85025; 93005; 93017; 96372; 96374; 99218; 99284; A4216; G0378

== ENCOUNTER 2022-03-15 11:53 | Outpatient (CLI) | payer MEDICARE, SELFPAY ==
[2022-03-15 12:13] LABS: Absolute Neutrophil Count 6.1 X10^3/uL (2.0-7.7); Basophil# 0.08 X10^3/uL; Basophil% 0.9 % (0-1); Eosinophil# 0.22 X10^3/uL; Eosinophils% 2.4 % (0-5); Hematocrit 39.9 % (37-47); Hemoglobin 13.6 g/dL (12.0-15.0); Lymphocyte % 22.2 % (19-41); Mean Corp Hgb Conc 34.1 g/dL (32-36); Mean Corpuscular Hgb 32.9 pg (27.0-32.0); Mean Corpuscular Volume 96.6 fL (81-99); Mean Platelet Vol. 9.5 fl (6.2-12.0); Monocyte# 0.59 X10^3/uL; Monocyte% 6.5 % (0-10); NRBC Flagged by Analyzer 0 % (0-5); Neutrophil # 6.09 X10^3/uL (2.7-7.7); Neutrophil % 67.6 % (47-70); Platelet Count 357 K/mm3 (150-450); RBC Distribution Width CV 14.6 % (11.6-14.6); RBC Distribution Width SD 51.5 fl (35.1-43.9); Red Blood Count 4.13 M/mm3 (4.2-5.4)
[2022-03-15 12:34] LABS: Anion Gap 7 (5-15); BUN 16 mg/dL (7-18); BUN/Creat Ratio 17.4 RATIO (10-20); Calcium,Total 8.9 mg/dL (8.5-10.1); Chloride 105 mmol/L (98-107); Creatinine, Serum 0.92 mg/dL (0.55-1.02); EST Glomerular Filtration Rate 62 mL/min (>60); Est Glom Filt Rate - Afr Amer 75 mL/min (>60); Glucose 116 mg/dL (74-106); Potassium 3.5 mmol/L (3.5-5.1); Sodium Level 139 mmol/L (136-145)
== END 2022-03-15 23:59 | disposition home or self-care (01) ==
PROVIDERS: PCP Family Medicine; Referring Provider Internal Medicine Cardiovascular Disease; Visit Provider Internal Medicine Cardiovascular Disease
DX: R07.9 Chest pain, unspecified (principal)
CPT/HCPCS: 36415; 80048; 85025

== ENCOUNTER 2022-03-21 10:02 | Observation (INO) | payer MEDICARE, SELFPAY ==
[2022-03-20 08:11] VITALS: BMI 27.4
[2022-03-21] VITALS (12 sets, daily range): BP systolic 139–161; BP diastolic 55–72; PULSE 72–101; RESP 14–16; TEMP 36.6–37.1; O2SAT 97–100
--- NOTE | 2022-03-21 08:40 | CL.D_ITS ---
Patient Name: ROBERTO CARCAMO Study Date: 03/21/2022 Performing: Del Barroso MD Ht: 62 inches 157.48 cm : 1940 Wt: 150 lbs 68.04 kg Age: 82 Gender: female BSA: 1.69 PROCEDURE(S) PERFORMED DC01-(44010)LHC/COR/LV CLINICAL PROFILE AND INDICATIONS Indications: Worsening Angina Heart Failure: None Stress/Imaging Date: 01/23/22 CAD Presentations: Unstable angina. CONCLUSIONS Severe proximal calcified LAD stenosis and moderate disease in the distal right coronary artery and preserved ejection fraction RECOMMENDATIONS Referred for immediate PCI DESCRIPTION OF PROCEDURE The patient arrived to the procedure lab. The risks and benefits of the procedure as well as a full description of our services here and current unavailability of surgical backup were fully explained to the patient and/or their significant other prior to the catheterization. The Timeout was completed, verifying the correct patient and procedure. The patient's procedural site was prepped and draped in the usual fashion. Local anesthetic was given subcutaneously to right radial region with Lidocaine 2%. Using a modified Seldinger technique, arterial access was obtained via the right radial artery, a 6Fr sheath was inserted. Right Coronary Artery selective angiography was then performed in multiple views using a 5 Fr. 4.0 [place] catheter. Left Coronary Artery selective angiography was performed in multiple views using a 5 Fr. 4.0 [place] catheter. Left Ventriculography was performed in CORONADO projection using a 5 Fr. Pigtail catheter. LV to AO pullback pressures were then recorded. CORONARY ANGIOGRAPHY DOMINANCE: Right Dominant LEFT HEART ASSESSMENT Left Ventricular Ejection Fraction: by LV Gram 70 % Normal LV wall motion Normal Left Ventricular systolic function LEFT MAIN: Angiographically normal LEFT ANTERIOR DESCENDING ARTERY: Moderate calcification, Proximal 95% stenosis with mild distal diffuse disease CIRCUMFLEX ARTERY: Mild luminal irregularities less than 30% RIGHT CORONARY ARTERY: Mild luminal irregularities less than 30% RT PDA: Ostial - 70 % Stenosis COMPLICATIONS PROCEDURE MEDICATIONS Fentanyl 50 mcg IV Versed 1 mg IV Oxygen: 2 L/min via nasal cannula Benadryl 25 mg IV @ 03/21/2022 07:50:49 Heparin given IA 03/21/2022 08:21:52 Solu-cortef 100 mg IV 03/21/2022 07:50:54 SUMMARY OF HEMODYNAMIC DATA Time AIR REST ECG 07:10:02 AO 169/49 (93) SA 08:10:14 AO 142/59 (94) 08:22:46 LV 146/18, 25 08:28:14 LV 142/17, 26 08:28:41 LV 154/20, 30 08:28:48 LVp 146/17, 32 08:28:53 AOp 149/63 (102) 08:29:00 Signed By Del Barroso MD On 03/21/2022 08:40:16 Del Barroso MD
--- NOTE | 2022-03-21 10:15 | EKG12_ITS ---
Test Reason : daily ekg Blood Pressure : / mmHG Vent. Rate : 077 BPM Atrial Rate : 077 BPM P-R Int : 150 ms QRS Dur : 086 ms QT Int : 406 ms P-R-T Axes : 027 006 143 degrees QTc Int : 459 ms Normal sinus rhythm ST & T wave abnormality, consider anterolateral ischemia Abnormal ECG Confirmed by TIANA CAZARES, DEL ([id number]), associate editor EMERITA CARL ([id number]) on 03/23/2022 10:06:04 AM Referred By: eDl Barroso Confirmed By:DEL BARROSO MD
[2022-03-21 11:38] LABS: ACT Activated Clotting Time 341 sec (74-137)
[2022-03-21] MEDS: 0.9% Normal Saline 1,000 ML 150 ML IV (12:09)
--- NOTE | 2022-03-21 12:35 | CL.I_ITS ---
Patient Name: ROBERTO CARCAMO Study Date: 03/21/2022 Performing: Kadie Walsh MD Ht: 62 inches 157.48 cm : 1940 Wt: 150 lbs 68.04 kg Age: 82 Gender: female BSA: 1.69 PROCEDURE(S) PERFORMED [id number] INTRAVASCULAR LITHOTRIPSY IC12-(87339/[id number])SHEILA W/WO PTCA, SINGLE CORONARY ARTERY CLINICAL PROFILE AND CO-MORBIDITIES Indications: Worsening Angina Heart Failure: None Stress/Imaging Date: 01/23/22 CAD Presentations: Unstable angina. CONCLUSIONS Successful PTCA/SHEILA heavily calcified Mid LAD using Shockwave lithotripsy and Resolute [place] 2.5x12 mm, post-dilated using 2.75 mm balloon RECOMMENDATIONS LISSETTE Nguyen for at least 12 months DESCRIPTION OF PROCEDURE The patient arrived to the procedure lab. The risks and benefits of the procedure as well as a full description of our services here and current unavailability of surgical backup were fully explained to the patient and/or their significant other prior to the catheterization. The Timeout was completed, verifying the correct patient and procedure. The patient's procedural site was prepped and draped in the usual fashion. Local anesthetic was given subcutaneously to right radial region with Lidocaine 2% Using a modified Seldinger technique,arterial access was obtained via the right radial artery, a 6Fr sheath was inserted. Right Coronary Artery selective angiography was then performed in multiple views using a 5 Fr. 4.0 [place] catheter. Left Coronary Artery selective angiography was performed in multiple views using a 5 Fr. 4.0 [place] catheter. Left Ventriculography was performed in CORONADO projection using a 5 Fr. Pigtail catheter. LV to AO pullback pressures were then recorded.The images were reviewed and options discussed. A decision was then made to proceed with an Intervention, IVUS or other adjunct procedure. XB 3.0 Guide catheter was inserted and engaged into the LCA. RUNTHROUGH Guide wire was advanced to the LAD. Angiogram performed pre balloon dilatation. 2.0 X 12 EMERGE Balloon catheter was inserted. Balloon catheter was advanced across lesion in the LAD, mid. PTCA balloon inflated at 12 atms for 29 secs. PTCA balloon inflated at 12 atms for 17 secs. Angiogram performed post balloon dilatation. 2.5 SHOCKWAVE Balloon catheter was inserted. Angiogram performed post balloon dilatation. 2.25X12 NC EMERGE Balloon catheter was inserted. Balloon catheter was advanced across lesion in the LAD, mid. PTCA balloon inflated at 12 atms for 21 secs. PTCA balloon inflated at 12 atms for 16 secs. PTCA balloon inflated at 16 atms for 27 secs. 2.5 SHOCKWAVE Balloon catheter was advanced across lesion in the LAD, mid. Angiogram performed pre balloon dilatation. PTCA balloon inflated at 6 atms for 25 secs. PTCA balloon inflated at 4 atms for 14 secs. PTCA balloon inflated at 6 atms for 29 secs. PTCA balloon inflated at 6 atms for 25 secs. PTCA balloon inflated at 6 atms for 26 secs. PTCA balloon inflated at 6 atms for 25 secs. PTCA balloon inflated at 6 atms for 30 secs. PTCA balloon inflated at 6 atms for 25 secs. Angiogram performed post balloon dilatation. 2.5X12 RESOLUTE Drug Eluting stent was inserted. Drug Eluting stent was advanced across the lesion in the LAD, mid. Angiogram performed pre stent deployment. Angiogram performed post stent deployment. 2.5X8 NC EMERGE Balloon catheter was inserted. Balloon catheter was inserted post stent. Angiogram performed post balloon dilatation. 2.75X8 NC EMERGE Balloon catheter was inserted POST STENT Angiogram performed post balloon dilatation. Angiogram performed The arterial sheath was pulled and a TR Band was applied for hemostasis - 10cc air INTERVENTION INFORMATION LESION SITE: LAD (Mid) Lesion Complexity: High/C, lesion length: 10 mm, culprit lesion: Yes Pre Stenosis: 95 % Pre intervention EFRAIN flow: 3 PROCEDURE: Drug Eluting Stent with pre and post dilatation Post Stenosis: 15 % Post intervention EFRAIN flow: 3 Lesion Devices: Cordis 6 Fr XB3.0 100cm Guide Catheter Terumo .014 Runthrough Extra Floppy 180cm straight Ori Sci EMERGE MR 2.00x12 BALLOON [employer] Shockwave IVL 2.5x12 Ori Sci NC EMERGE MR 2.25x12 BALLOON [employer] Resolute [place] RX SHEILA 2.5x12 Ori Sci NC EMERGE MR 2.50x08 BALLOON Ori Sci NC EMERGE MR 2.75x08 BALLOON COMPLICATIONS No Complications PROCEDURE MEDICATIONS Fentanyl 50 mcg IV Versed 1 mg IV Oxygen: 2 L/min via nasal cannula Benadryl 25 mg IV @ 03/21/2022 07:50:49 Heparin given IA 03/21/2022 08:21:52 Heparin 5000 unit(s) IV 03/21/2022 09:06:47 Heparin 2000 unit(s) IV 03/21/2022 09:34:50 Solu-cortef 100 mg IV 03/21/2022 07:50:54 SUMMARY OF HEMODYNAMIC DATA Time AIR REST ECG 07:10:02 AO 169/49 (93) SA 08:10:14 AO 142/59 (94) 08:22:46 LV 146/18, 25 08:28:14 LV 142/17, 26 08:28:41 LV 154/20, 30 08:28:48 LVp 146/17, 32 08:28:53 AOp 149/63 (102) 08:29:00 AIR REST 12:22:14 Signed By Kadie Walsh MD On 03/21/2022 12:34:42 Kadie Walsh MD
--- NOTE | 2022-03-21 13:34 | CASEMGMT ---
Pt s/p outpatient cath and started on Brilinta. Pt provided with Brilinta month free trial card, voices understanding and pt voices no further questions/concerns/needs. Sandeep CLAY CM
--- NOTE | 2022-03-21 15:13 | CRPHASE1 ---
Patient Communication PHII Cardiac Rehab Discussed with Patient:: Yes Guide to Cardiac Rehab Given to Patient:: Yes Cardiac Rehab Facility Choice List Given to Patient:: Yes Choice Program [facility] CR PHII:: Communication Given to CR Small Piece Cutter:: Del Barroso Phase II Cardiac Rehab:: Yes Sessions:: 36 sessions - 3 days/wk, 12 weeks Cardiac Rehabilitation Info Cardiac Rehabilitation Program Information: Cardiac Rehabilitation is important for patients like you who are recovering from a heart problem. Cardiac rehabilitation programs are recognized as integral to the continued care of the patient with coronary heart disease. The cardiac rehabilitation program is designed to optimize a patient's physical, psychological, and social functioning. Health respiratory care program director work in cardiac rehabilitation programs and assist you with getting the treatments you need to get stronger and healthier - like exercise, healthy eating habits, and medications. Cardiac rehabilitation has been show to help people with heart problems live longer and have better life enjoyment than people who do not go to cardiac rehabilitation. Please contact the Cardiac Rehabilitation Program at [facility] at in two weeks if you have not heard from them.
--- NOTE | 2022-03-21 15:13 | CRPH1.INSTRU ---
General Education CAD and cardiac anatomy and function:: Patient communicates acknowledgment, Family communicates acknowledgment Explanation of diagnoses and procedures:: Patient communicates acknowledgment, Family communicates acknowledgment Sign/Symptoms of [place]:: Patient communicates acknowledgment, Family communicates acknowledgment Antiplatelet therapy: Patient communicates acknowledgment, Family communicates acknowledgment Proper use of NTG-SL: Patient communicates acknowledgment, Family communicates acknowledgment Emergency procedures and activation of EMS: Patient communicates acknowledgment, Family communicates acknowledgment Compliance of all prescribed medications: Patient communicates acknowledgment, Family communicates acknowledgment Smoking Patient Nicotine/Smoking Risk Factors Are:: Non-smoker Dyslipidemia Patient Dyslipidemia Risk Factors Are:: Total Cholesterol, Triglycerides, HDL, LDL Recommendations Include:: Lipid profile not available Dyslipidemia Response Code:: Patient communicates acknowledgment, Family communicates acknowledgment Overweight/Obesity Patient Overweight/Obesity Risk Factors Are:: BMI Normal [24-29 & > 65 years old] Recommendations Include:: Weight loss of 5-10%, Reduced calorie diet, Exercise 5-7 times/week Overweight/Obesity:: Patient communicates acknowledgment, Family communicates acknowledgment Hypertension Recommendations Include:: Maintain BP <130/85, Decrease/maintain normal body weight, Moderation of ETOH Hypertension:: Patient communicates acknowledgment, Family communicates acknowledgment Sedentary Patient Sedentary Risk Factors Are:: Lack of regular exercise Recommendations Include:: Aerobic exercise 5-7 times/week for 20-30 minutes continuously, Benefits of regular exercise, Discussed home walking program, Monitored Outpatient Cardiac Rehab Sedentary Response Code:: Patient communicates acknowledgment, Family communicates acknowledgment
[2022-03-21] MEDS: Famotidine 20 MG Tablet 40 MG PO (20:34)
[2022-03-21] MEDS: TICAGRELOR 90 MG TABLET PO (20:34)
[2022-03-21] MEDS: Atorvastatin Calcium 10 MG Tablet PO (20:34)
[2022-03-22 05:00] VITALS: BP 154/63; PULSE 72; PULSE 79; RESP 16; TEMP 36.2; O2SAT 98
[2022-03-22 05:26] LABS: Hematocrit 36.9 % (37-47); Hemoglobin 12.5 g/dL (12.0-15.0); Mean Corp Hgb Conc 33.9 g/dL (32-36); Mean Corpuscular Hgb 33.1 pg (27.0-32.0); Mean Corpuscular Volume 97.6 fL (81-99); Platelet Count 373 K/mm3 (150-450); RBC Distribution Width CV 14.8 % (11.6-14.6); RBC Distribution Width SD 52.5 fl (35.1-43.9); Red Blood Count 3.78 M/mm3 (4.2-5.4); White Blood Count 9.6 K/mm3 (4.4-11.0)
[2022-03-22 05:52] LABS: BUN 14 mg/dL (7-18); Estimated Creatinine Clearance 42.88 ml/min; Glucose 92 mg/dL (74-106)
[2022-03-22 05:53] LABS: ALB/GLOB Ratio 0.7 RATIO (0.9-2.4); AST(SGOT) 21 U/L (15-37); Alanine Aminotransfer ALT/SGPT 24 U/L (13-56); Albumin, Serum 2.7 g/dL (3.2-5.0); Alkaline Phosphatase 49 U/L (45-117); Anion Gap 6 (5-15); BUN/Creat Ratio 17.5 RATIO (10-20); Calcium,Total 8.5 mg/dL (8.5-10.1); Chloride 109 mmol/L (98-107); EST Glomerular Filtration Rate 73 mL/min (>60); Est Glom Filt Rate - Afr Amer 88 mL/min (>60); Globulin 4.1 g/dL (2.2-4.2); Potassium 3.4 mmol/L (3.5-5.1); Protein, Total 6.8 g/dL (6.4-8.2); Sodium Level 141 mmol/L (136-145)
[2022-03-22] MEDS: Levothyroxine 25 MCG TABLET PO (06:43)
[2022-03-22 07:10] VITALS: O2SAT 98
[2022-03-22 07:22] VITALS: PULSE 77
--- NOTE | 2022-03-22 08:13 | PCM.PN.CARD ---
Subjective Subjective Patient seen and evaluated. Appears to be doing well this morning. Objective Data Vital Signs: Vital Signs Temp Pulse Resp BP Pulse Ox O2 Del Method 97.2 F L 77 16 154/63 H 98 Room Air 03/22/22 05:00 03/22/22 07:22 03/22/22 05:00 03/22/22 05:00 03/22/22 05:00 03/22/22 05:00 Oxygen Delivery Method Room Air Weight: 150 lb Body Mass Index (BMI) 27.4 Intake & Output: Intake and Output for Last 24 Hours 03/20/22 03/21/22 03/22/22 23:59 23:59 23:59 Intake Total 1360 / 1360 Balance 1360 / 1360 Lab / Micro Data Result Diagrams: 03/22/22 04:47 03/22/22 04:47 Labs: Laboratory Results - last 24 hr 03/21/22 09:35: Activated Clotting Time 341 H 03/22/22 04:47: WBC 9.6, RBC 3.78 L, Hgb 12.5, Hct 36.9 L, MCV 97.6, MCH 33.1 H, MCHC 33.9, RDW Std Deviation 52.5 H, RDW Coeff of Ranjeet 14.8 H, Plt Count 373, MPV 10.0 03/22/22 04:47: Sodium 141, Potassium 3.4 L, Chloride 109 H, Carbon Dioxide 26.0, Anion Gap 6, BUN 14, Creatinine 0.80, Estim Creat Clear Calc 42.88, Est GFR (MDRD) Af Amer 88, Est GFR (MDRD) Non-Af 73, BUN/Creatinine Ratio 17.5, Glucose 92, Calcium 8.5, Total Bilirubin 0.40, AST 21, ALT 24, Alkaline Phosphatase 49, Total Protein 6.8, Albumin 2.7 L, Globulin 4.1, Albumin/Globulin Ratio 0.7 L Cardiology Labs/Tests 03/22/22 04:47: WBC 9.6, RBC 3.78 L, Hgb 12.5, Hct 36.9 L, MCV 97.6, MCH 33.1 H, MCHC 33.9, Plt Count 373, MPV 10.0 03/22/22 04:47: Sodium 141, Potassium 3.4 L, Chloride 109 H, Carbon Dioxide 26.0, Anion Gap 6, BUN 14, Creatinine 0.80, Est GFR (MDRD) Af Amer 88, Est GFR (MDRD) Non-Af 73, BUN/Creatinine Ratio 17.5, Glucose 92, Calcium 8.5, Total Bilirubin 0.40 Rhythm: EKG: ECHO: Stress Test: Cardiac Cath: PCI: CT Surgery: Holter monitor: EPS: PPM: CXR: Chest CT Scan: Physical Exam Const alert and oriented x3 General Appearance: cooperative and comfortable HEENT normocephalic and head/scalp atraumatic Eyes EOMs intact bilaterally Neck supple Resp normal respiratory effort and clear to auscultation bilaterally Cardio regular rate and regular rhythm GI soft to palpation, non-tender and non-distended Extremity normal to inspection Skin no rashes or lesions noted Neuro moves all extremities Psych affect normal Assessment & Plan Assessment/Plan (1) CAD (coronary artery disease): PLAN: The patient presented with chest pain and was noted to have a left anterior descending artery calcified lesion. She underwent PCI of the above. She is doing well at this time. The plan will be to discharge her for outpatient follow-up.
--- NOTE | 2022-03-22 08:15 | DCINST_ITS ---
Discharge Instructions Diet Discharge Diet: No restrictions Activity Discharge Activity: Return to Normal Activity Additional Activity Instructions:: You must have someone drive you home. Do not drive until instructed by your doctor. You must have someone stay with you all night after your test. Rest in bed or on the couch until the next morning. Limit the number of times you go up and down stairs the day of your test. Apply pressure to the puncture site if you sneeze or cough. Dressing / Incision Call your doctor if your incision/area has: Increased Pain/ Swelling, Increased Redness, Foul Smelling Discharge and Swelling at the incision site Call your doctor if you observe: Fever of 101 or Higher Additional Dressing/Incision Instructions:: Keep the dressing (bandage) on until the next morning. You may then shower, but do not take a tub bath for 5 days after your test. It is normal to have some tenderness and discomfort at the puncture site. Sometimes bruising also occurs. However, if pain, numbness, or coldness occurs below the puncture site (in your leg, toes, arms or fingers) call your doctor at once. You may have a small, marble sized knot at the puncture site. This is normal. Do not rub it. It will go away in 4-6 weeks. Bleeding can occur from the area where the puncture was done. Blood may spurt or drip from the site. If blood spurts, apply pressure right away to stop bleeding and call 911. Although rare, bleeding into the tissue (hematoma) can also occur. If this happens, a large, firm area goose egg under the skin will appear. If any of these occur, lie down as flat as you can and have someone apply firm pressure to the cath site with a gauze pad or a clean washcloth for 10-15 minutes. Call 911 or go to the Emergency Department. Follow Up Care When: Follow-up with previously scheduled appointment. Test Results: Test results from this visit will be discussed in further detail at your follow- up appointment, if applicable. Discharge Plan Admission Admit Date/Time: 03/21/22 10:02 Attending Provider: Del Barroso Primary Care Provider: Viky Givens Discharge Orders/Prescriptions Prescriptions: New Brilinta 90 mg Tablet 90 mg PO BID Qty: 180 3RF atorvastatin 10 mg Tablet 10 mg PO QHS Qty: 60 3RF Continued metoprolol succinate 50 mg tablet extended release 24 hr 50 mg PO DAILY Qty: 60 3RF amlodipine 5 mg tablet 5 mg PO DAILY acetaminophen 500 mg capsule 1,000 mg PO TID PRN (Reason: fever or pain) amoxicillin 500 mg capsule 2,000 mg PO ONCE Rx Instructions: 1 hour before dental procedures ICaps AREDS [id number] capsule 1 cap PO BID pantoprazole 40 mg Tablet,Delayed Release (Dr/Ec) 40 mg PO DAILY famotidine 40 mg Tablet 40 mg PO QHS alendronate 70 mg Tablet 70 mg PO QWEEK levothyroxine [Synthroid] 25 mcg Tablet 25 mcg PO DAILY aspirin 81 mg Tablet,Chewable 81 mg PO DAILY calcium carbonate-vitamin D3 600 mg-5 mcg (200 unit) tablet 1 tab PO DAILY Discontinued red yeast rice 600 mg capsule 1,200 mg PO DAILY Rx Instructions: give with meal/snack Referrals / Follow Up: Viky Givens DO [Primary Care Provider] - Disposition Disposition (needs filled in before D/C Order can be placed): Home, Self Care
[2022-03-22 08:19] VITALS: BP 140/59; PULSE 77; RESP 14; TEMP 36.6; O2SAT 100
[2022-03-22] MEDS: Potassium Chloride Oral Tablet 20 MEQ 40 MEQ PO (08:26)
[2022-03-22 08:28] VITALS: BP 140/59; PULSE 77
[2022-03-22] MEDS: Pantoprazole Sodium 40 MG Tablet PO (08:28)
[2022-03-22] MEDS: TICAGRELOR 90 MG TABLET PO (08:28)
[2022-03-22] MEDS: Metoprolol(XL)Succ 50 MG Tablet PO (08:28)
[2022-03-22] MEDS: Aspirin 81 MG TAB.CHEW PO (08:28)
[2022-03-22] MEDS: amLODIPine 5 MG Tablet PO (08:28)
--- NOTE | 2022-03-22 09:40 | CASEMGMT ---
Pt to be sent home on Brilinta and med e-scribed to [facility] pharmacy. Call [facility] and per pharmacist, he does not have Brilinta in stock till at least tomorrow afternoon. This RN CM to room to discuss with pt. Pt would like [facility] pharmacy to fill Brilinta and atorvastatin for this time and then she will go back to [facility]. 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 Irais aware pt ready for d/c. Sandeep CLAY CM
--- NOTE | 2022-03-22 10:00 | EKG12_ITS ---
Test Reason : Blood Pressure : / mmHG Vent. Rate : 077 BPM Atrial Rate : 077 BPM P-R Int : 148 ms QRS Dur : 088 ms QT Int : 376 ms P-R-T Axes : 034 -02 123 degrees QTc Int : 425 ms Normal sinus rhythm Minimal voltage criteria for LVH, may be normal variant ( R in aVL ) Nonspecific ST and T wave abnormality Abnormal ECG Confirmed by [facility] CAZARES, KETTY ([id number]), tape editor EMERITA CARL ([id number]) on 03/29/2022 8:59:22 AM Referred By: Del Barroso Confirmed By:KETTY BENTLEY MD
== END 2022-03-22 08:13 | disposition home or self-care (01) ==
LOC: PCU 10:20
PROVIDERS: Internal Medicine Cardiovascular Disease; Admitting Provider Internal Medicine Cardiovascular Disease; PCP Family Medicine; Referring Provider Internal Medicine Cardiovascular Disease; Visit Provider Internal Medicine Cardiovascular Disease
DX: I25.110 Atherosclerotic heart disease of native coronary artery with unstable angina pectoris (principal); I48.0 Paroxysmal atrial fibrillation; I10 Essential (primary) hypertension; Z79.899 Other long term (current) drug therapy; Z79.82 Long term (current) use of aspirin; E03.9 Hypothyroidism, unspecified; Z79.890 Hormone replacement therapy; E78.2 Mixed hyperlipidemia; I73.00 Raynaud's syndrome without gangrene
CPT/HCPCS: 36415; 80053; 85027; 85347; 92928; 93005; 93458; 96360; 96361; 99152; 99153; 99218; C1761; J7030; J7040; C1725; C1769; C1874; C1887; C1894; C9600; G0378; Q9967

== ENCOUNTER → 2022-04-10 | Outpatient (CLI) | payer MEDICARE, SELFPAY ==
--- NOTE | 2022-04-10 13:52 | CR.HP_ITS ---
CR - History & Physical - General Arrival date:: 04/10/22 Arrival time:: 13:56 Date of Referral:: 03/22/22 Date of CR Evaluation:: 04/10/22 Referring Physician: Dr. Del Barroso Primary Diagnosis: PCI w/coronary stent placement - History of Present Cardiac Event Onset Date: Enter Onset Date of cardiac illnesses in Comment field below Acute Myocardial Infarction within 12 months:: No PTCA or coronary stenting:: Yes - 03/21/2022 Heart or Heart-Lung Transplant:: No Heart Failure EF <35%:: No Type of Symptoms:: Ongoing chest pains. She was seen in emergency room for serial troponins and EKG which were negative, she was discharged home and scheduled for a stress test which was negative for ischemia. She continued to experience chest discomfort and was then scheduled for a heart cath. procedure. Interventions with present event:: Troponins, EKG, Stress Test, and Heart Catheterization Were there any complications?: None - Sleep Disorder Evaluation Hx of Sleep Apnea: No Do you snore loudly (louder than talking or can be heard through closed doors)?: No Do you often feel tired/ fatigued/ sleepy during daytime?: No Has anyone observed you stop breathing during sleep?: No History of Hypertension (for STOP score): Yes STOP Results: Negative - Medications Home Medications: Ambulatory Orders Medication Instructions Recorded alendronate 70 mg tablet 70 mg PO QWEEK 01/22/22 aspirin 81 mg chewable tablet 81 mg PO DAILY 01/22/22 famotidine 40 mg tablet 40 mg PO QHS 01/22/22 levothyroxine 25 mcg tablet 25 mcg PO DAILY 01/22/22 (Synthroid) pantoprazole 40 mg tablet,delayed 40 mg PO DAILY 01/22/22 release acetaminophen 500 mg capsule 1,000 mg PO TID PRN fever or pain 03/01/22 amlodipine 5 mg tablet 5 mg PO DAILY 03/01/22 amoxicillin 500 mg capsule 2,000 mg PO ONCE 03/01/22 calcium carbonate 600 mg-vitamin 1 tab PO DAILY 03/01/22 D3 5 mcg (200 unit) tablet vitamins A,C,U-uwsq-xpwtzt 14,320 1 cap PO BID 03/01/22 unit-226 mg-200 unit capsule (ICaps AREDS) metoprolol succinate 50 mg 50 mg PO DAILY #60 tabs 03/15/22 tablet,extended release 24 hr atorvastatin 10 mg tablet 10 mg PO QHS #60 tabs 03/22/22 ticagrelor 90 mg tablet (Brilinta) 90 mg PO BID #180 tabs 03/22/22 ticagrelor 90 mg tablet (Brilinta) 90 mg PO BID 04/10/22 - Allergies Allergies/Adverse Reactions: Allergies fish derived [seafood - derived] Allergy (Verified 03/31/22 13:48) NEEDS FOLLOW-UP iodine Allergy (Verified 03/15/22 09:25) Unknown shellfish derived [seafood - shellfish] Allergy (Verified 03/31/22 13:48) NEEDS FOLLOW-UP Sulfa (Sulfonamide Antibiotics) Allergy (Verified 03/15/22 09:25) Unknown cortisone Adverse Reaction (Mild, Verified 03/15/22 09:25) Rash Advanced Directives - Advanced Directives Power of Insulation Blanket Maker: Yes Living Will: Yes Advance Directives Information Provided: No Advance Directives on File: No DNR Order?:: No - MOLST See MOLST form: No Past Medical History - Covid-19 Screening Fever: No Unexplained muscle aches: No Current respiratory symptoms: No Upper respiratory infections symptoms: No Gastro-intestinal symptoms: Yes - Barrrett's Esophagous, GERD [id number] symptoms: No Has tested positive for COVID-19 in last 30 days: No Date of testin04/10/22 - hAS NOT RECEIVED VACCINATIONS Had contact w/person w/symptoms or Covid-19 (+) last 14 days: No Has High Risk Exposures ID'd by Health dept/Inf Control team: No 65 years or older:: Yes Lives in Assisted Living facility:: No Has a chronic lung disease or moderate to severe asthma:: No Has a serious heart condition:: No Immunocompromised:: No Severely obese (Body Mass Index of 40 or higher):: No Diabetic:: No Has chronic kidney disease undergoing dialysis:: No Has liver disease:: No - Past Medical Illness Medical History: Past Medical History (Last Updated 03/22/22 @ 16:47 by Katie Nieto) Acute mitral regurgitation I34.0 Atherosclerosis of coronary artery of [place] heart without angina pectoris I25.10 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 Collagen vascular disease M35.9 Essential (primary) hypertension I10 Gall stones K80.20 Hypothyroidism E03.9 Mixed hyperlipidemia E78.2 Osteoarthritis M19.90 Osteopenia M85.80 Paroxysmal atrial fibrillation I48.0 Raynauds disease I73.00 Trigger finger of right hand Onset Date: ~07/2021 M65.30 - Past Surgical History Surgical History: Past Surgical History (Last Updated 03/22/22 @ 16:49 by Katie Nieto) H/O foot surgery Z98.890 History of carpal tunnel release Z98.890 History of section Z98.891 History of cholecystectomy Onset Date: ~09/22/13 Z90.49 History of coronary artery stent placement Onset Date: ~03/21/22 Z95.5 PTCA/SHEILA heavily calcified Mid-LAD using Shockwave lithotripsy and Resolute Laron 2.5x12mm History of ERCP Onset Date: ~12/16/13 Z98.890 History of hip surgery Onset Date: ~04/2005 Z98.890 total hip History of tubal ligation Z98.51 Surgical History: no surgical history - Family History Summary Family History: Family History (Last Reviewed 03/21/22 @ 10:32 by Silvana Batista) Father Suicide Hypertension Unknown Cancer Diabetes Social History - Smoking History Smoking Status: Never smoker Hx Tobacco Use: No Hx Smoking Exposure: No - Alcohol Use Alcohol Usage: No - Substance Abuse Hx Substance Use: No - Occupation Occupation (List type of work in comments):: Retired - Hobbies, Recreation, Social Activities Hobbies: Sewing - QUILTING, Other Recreational Activities: I am able to engage in all my recreational activities Social Environment - Status Marital Status: - Current Living Arrangements Living Environment:: Spouse - Children How many children do you have?: 3 Do any of your children live nearby?: Yes - Safety Do you feel safe in your surroundings?: Yes - Assistance Do you need any assistance at home?: NONE Review of Systems - Review of Systems Hints: Right click = Denies ([place]ash). Left click = Reports ([place]) Review of Present Symptoms: Reports: Fatigue - Began taking the metoprolol in the morning at 50mg and by the afternoon or evening began to notice feeling more fatigued and tired. Peak energy in the morning., Heart Arrhythmia/Irregularities - Has a prior history of atrial fibrillation, Appetite - Normal, Sleep - Normal. Denies: Shortness of Breath at Rest, Shortness of Breath with Exertion - VERY RARE OCCASIONALLY, WALKS ABOUT 15 MINUTES DAILY BUT WALKING UP A LSIGHT GRADE OF THE DRIVEWAY SOMETIMES GETS A LITTLE MORE WINDED. ABLE TO CLIMB STAIRS WITHOUT A PROBLEM., Angina, Dizziness/Lightheadedness, Appetite - Special Diet, Sexual Changes - Pain Is Patient Pain Free?: Yes Pain Location: none Risk Factor Assessment - Chief Complaint Chief Complaint: Patient is a very young [address] Barroso who presents to cardiac rehab today following recent stent placement. - Vital Signs Temperature: 97.8 F Respiratory Rate: 14 Pulse Ox: 98 Blood Pressure: 162/80 - Pulse Pulse Rate: 77 Pulse Rhythm: Regular - Hypertension How long have you been treated?: recent years Blood Pressure Sitting - Left Arm: 162/80 - Stress Stress: - - nothing more than normal daily life. - Blood Cholesterol/Lipids Total Cholesterol (mg/dL) Goal = less than 200 mg/dL: 0 - No current labs available - Obesity Height: 5 ft 2 in Weight:: 150 lb Weight in Pounds: 150.0 lbs Weight Source: Estimated by Patient Body Mass Index (BMI): 27.4 Nutritional Referral for Obesity: No - Physical Inactivity Physical Inactivity: Reg Exercise 30 min/day, Recreational activity - loves walking daily 15 minutes. - Family History Family History: Family History (Last Reviewed 03/21/22 @ 10:32 by Silvana Batista) Father Suicide Hypertension Unknown Cancer Diabetes Motivation - Motivation to Participate On a scale of 1 to 10, how prepared are you to commit to attending program?: 10 What do you see as barriers to successfully being able to complete the program?: nothing that I can think of What do you see as the benefits of succesfully completing the program? In other words, what do you hope to get out of participating in the program?: Making the heart stronger Are there issues you are dealing with that will interfere with completing the program?: no Do you have a spouse or signficant other, family or friends who will help support you to complete the program?: Yes
--- NOTE | 2022-04-10 13:53 | PCM.CR.ITP ---
Diagnosis - General Information Admitting Diagnosis: PCI w/coronary stenting Secondary Diagnosis: ASHD, unspecified chest pain, HTN Personal Learning Style:: Audio/Visual, Written Barriers to Learning: Vision Impairment - Macular Degeneration Stage of change r/t lifestyle modifications:: Action Gave educational material for:: Treating Heart Disease, Emotions & Heart Disease, Stress Management & Relaxation, Sleep Disorders & Heart Disease, How The Heart Works, What it means to have Heart Disease, How Coronary Artery Disease is Diagnosed, Heart Procedures, What Heart Medications Do, Risk Factors & Modifications, Living an Active Life, Nutrition - Education/Goals Individual Counseling: Initial Assessment: High Blood Pressure Cardiac Rehabilitation Goals: 1. Maintain the individual as the primary focus of care. 2. To improve the patient's quality of life. 3. Identification of cardiac risk factors and provide cardiac risk factor management. 4. Enhance the psychosocial status of the patient. 5. Reconditioning enough to allow the patient to resume customary activities. 6. Control symptoms of cardiac disease Personal Goals: Initial Assessment: Participate in home exercise program, Improve knowledge of cardiac disease Scale for measuring improvement of personal goals: Enter appropriate number in Comments. 2 = Unchanged. 3 = Slightly Better. 4 = Moderate Improvement. 5 = Met my Goal - Diagnosis & Disease Process Outcomes/Goals: Pt IDs own risk factors & lifestyle modifications by Session 10, Verbalizes symptoms of angina & response by session 3., Pt independently manages Plan/Interventions: Assist Pt to ID & engage in lifestyle modification to reduce CVD risk, Instruct on individual risk factors, Review symptoms of angina & emergency actions, Review secondary diagnosis & identify educational needs. - Safety Referral to Physical Therapy: No Referral to [facility] Case Management: No Fall Risk Assessed:: Yes Assistive Devices:: None Exercise - Initial Assessment - Visit Date of Eval: 04/10/22 Session #:: 0 - Pre-cardiac Rehab Evaluation Mets: Pre-: >7 METS for 30 minutes by discharge - Stress Test Date: 01/23/22 Protocol:: Regular David Resting HR (bpm):: 73 Maximum HR (bpm):: 133 Blood Pressure: 168/70 Maximum Blood Pressure: 162/70 MET LEVEL:: 6.10 EKG: Normal Sinus Rhythm (does have a history of paroxysmal atrial fibrillation) - Physician Prescribed Exercise Modalities: Treadmill, Airdyne, NuStep Frequency: 3x/week for 12 weeks [36 sessions] Intensity: 60-80% of age predicted maximum heart rate reserve Duration: 30 - 45 minutes Current METSs:: 3.00 Target Heart Rate:: 86-100 Maximum Excercise HR:: 133 Resting Blood Pressure: 168/70 Maximum Exercise Blood Pressure: 168/70 EKG Type: NSR - Outcomes & Goals Goals:: Verbalizes understanding of THR, RPE & goal METS by session 6, Documents in home exercise log/reports 30 min aerobic 5 day/wk by DC, Demonstrates accurate pulse taking by DC - Intervention & Plan Exercise Program Goals: Instruct on personal THR & RPE, Instruct on MET level & personal MET goal, Show patient to take own pulse /validate performance until accurate, Instruct on home exercise - Physical Activity Home Exercise Physical Activity - Home Exercise: Safe Exercise, Warm-up, Self-monitoring, Cool-Down, Home Exercise > 30 min Daily, Sitting Time <3 hours/daily - Outcomes & Goals Outcomes/Goals: Demonstrates correct Warm-up/exercise Cool-Down (S3) if = 2.5 METs, Verbalizes symptoms of exercise intolerance by Session 3 (S3), Demonstrate safe equipment use (S3) & follows exercise prescrition (6) - Intervention & Plan Plan/Intervention: Instruct warm-up & cool-down if exercising at > 2 METs, Instruct on symptoms of exercise intolerance & actions to take, Instruct & monitor on saf, Assess intial functional capacity & safety risk Nutrition - Initial Assessment - Program Goals Nutrition Program Goals: LDL <100 optimal. 100 - 129 Near optimal. 130 - 159 Borderline High. 160 - 189 High. Total Cholesterol <200 desirable. 200 - 239 Borderline High. >/= 240 High. HDL < 40 Low >/=60 High. Triglycerides <150 desirable. <199 optimal. VlDL 5 - 40. HgbA1C <7%. BMI <25 Patient has diagnosis of Hyperlipidemia (ICD E78)?: No - Visit Date of Assessment:: 04/10/22 Session #:: 0 - Pre-cardiac rehab evaluation - Cholesterol/Lipids (Other Core Measures) Determine presence & major risk factors that modify LDL goal: Hypertension or hypertensive medication, Age men > 45 years; women >/= 55 years Outcomes/Goals: Pt IDs own risk factors & lifestyle modifications by Session 10, Verbalizes symptoms of angina & response by session 3., Pt independently manages Intervention/Plan: Instruct on personal lipid levels & lipid goals/NCEP guidelines, Instruct on cholesterol Referral to dietitian:: Yes - Medical Nutrition Therapy relating to HTN. - Diabetes (Other Core Measures) Diabetes Type: Not Applicable - Weight Mgt (Other Care) Not Applicable: Yes Height: 5 ft 2 in Weight:: 150 lb BMI: 27.4 Diagnosis Overweight/Obesity BMI> 30% ICD-10 E66: No Diagnosis High BMI/Morbid Obesity BMI> 35% ICD-10 Z68: No Outcomes/Goals: Pt sets, maintains & shows weight loss goal & trend during rehab Intervention/Plan: Instruct on ideal BMI & set weight loss goal w/patient - Healthy Eating Habits Will attend diet classes:: Yes Outcomes/Goals:: Consume diet rich in vegs,fruits,whole grain/high fiber,fish,lean meat, Limit sat/trans fats,cholesterol & added salts & sugars Intervention/Plan:: Assess current eating habits - Education Gave educational materials for:: Healthy eating Nutrition - 30-Day Assessment Nutrition - 60-Day Assessment Nutrition - 90-Day Assessment Nutrition - Final Assessment Core - Initial Assessment - Visit Date of Eval: 04/10/22 Session #:: 0 - Pre-cardiac rehab evaluation - Medication Compliance Preventative Medication(s):: Aspirin, Ticagrelor/P2Y12 inhibitor, Beta keshav H/O mental health issues: depression, anxiety, or addiction?: No Doesn?t believe in the benefits of treatment?: No Believes medications are unnecessary or harmful?: No Has a concern about medication side effects?: No Expresses concern over the cost of medications?: No Outcomes/Goals: Verbalizes medications,desired effect & common side effects @ DC, Pt self-reports following medication regimen, Keeps card in wallet w/medications listed by DC Interventions/plans: Instruct on medication effects & side effects, Review medication list w/patient every two weeks, Instruct importance of taking meds as ordered & assist problem solving - Tobacco Use Tobacco Use: Non-smoker - Hypertension Hypertension Diagnosis:: Hypertension ICD-10 I10 Resting Blood Pressure:: 168/70 - HTN Stage II; will monitor BPs [employer] Hypertension Guidelines: [place] [employer] Hypertension Guidelines. Normal BP Less than 120/80. Elevated BP 120/80. Hypertension Stage 1: BP 130-139/80-89. Hypertesnion Stage 2: BP 140 or higher/90 or higher. Hypertension Crisis: BP higher than 180/120 Outcomes/Goals: Able to verbalize/achieve optimal blood pressure <130/80, Incorporates diet changes & exercise for blood pressure control by DC Interventions/plan: Instruct on optimal blood pressure, hypertension & medications, Instruct on effects of sodium, alcohol, stress, exercise &hypertension - Tobacco Cessation Referral Smoking Cessation Referral:: No Individual Education/Counseling:: No Education Schedule Given:: Yes Core - 30-Day Assessment Core - 60-Day Assessment Core - 90 Day Assessment Core - Final Assessment Psychosocial - Initial Assess - VIsit Date of Eval: 04/10/22 Session #:: 0 - Pre-cardiac rehab evaluation Not Applicable: Yes History of previous Mental disease:: No - Psychosocial Test Tool Used:: PHQ-9 Questionnaire phq-9 Severity: Severity. 1-4 Minimal Depression. 5-9 Mild Depression. 10-14 Moderate Depression. 15-19 Moderately Sever Depression. 20-27 Severe Depression. Rule: - Referral to Behavioral Health PS - Interventions: Yes Attend Stress Management Classes, No Referral to Behavioral Health if PHQ-9 score >9:, No Referral to [facility] Community [facility], No Referral to Physician if PHQ-9 if score is 5-9: - Outcomes/Goals: See list Psychosocial Outcomes/Goals:: ID's personal stressors & 2 strategies to manage stress by discharge - Intervention/Plan: See List Interventions/Plan:: Assess stressors,coping strategies & signs of derpression on admission, Instruct/assist pt to develop coping & personal stress Mgt strategies, Instruct patient to recognize signs & symptoms of depression, Instruct patient to recog Psychosocial - 30-Day Assess Psychosocial - 60-Day Assess Psychosocial - 90-Day Assess Psychosocial - Final Assessmen Patient Health Questionnaire Initial Assessment 1. Little interest or pleasure in doing things: Not at all 2. Feeling down, depressed, or hopeless: Not at all 3. Trouble falling or staying asleep, or sleeping too much: Not at all 4. Feeling tired or having little energy: Not at all 5. Poor appetite or overeating: Not at all 6. Feeling bad about yourself -- or that you are a failure or have let yourself or your family down: Not at all 7. Trouble concentrating on things, such as reading the newspaper or watching television: Not at all 8. Moving or speaking so slowly that other people could have noticed. Or the opposite - being so fidgety or restless that you have been moving around a lot more than usual: Not at all 9. Thoughts that you would be better off , or of hurting yourself in some way: Not at all How difficult have these problems made it for you to do your work, take care of things at home, or get along with other people?: Not difficult at all Total Score: 0 MEGAN-Q SV Test - Statements CAD is a disease of the arteries in the heart: False Examples of risk factors for heart disease: True Angina is chest pain or discomfort: True The benefits of resistance training include: True Eating more meat and dairy products: False Anti-platelet medications such as aspirin are important: True The only effective way to manage stress: I Don't Know An exercise warm-up slowly increases heart rate: True Prepared, processed foods usually have high sodium: True Depression is common after a heart attack: I Don't Know The statin medications lower cholesterol: True To control blood pressure, lower the amount of sodium: True If someone gets chest discomfort during walking: I Don't Know Transfats are partially hydrogenated vegetable oils: I Don't Know Sleep apnea that is not treated increases the risk: I Don't Know To control cholesterol, one should become a vegetarian: I Don't Know Someone knows if he/she is exercising at the right level: I Don't Know Diabetes cannot be prevented with exercise & health eating: I Don't Know Stress is a large risk for heart attack: I Don't Know A diet that can help lower blood pressure is rich in: I Don't Know - Total Score Total Correct Responses: 10 Self-Efficacy Initial Assessment We would like to know how confident you are in doing certain activities. Please select your confidence level for:: Select your confidence level for the following using the scale 1-10 where 1 is not at all confident and 10 is totally confident. Your score is the average of all 6 responses. Fatigue: How confident are you that you can keep the fatigue caused by your disease from interfering with the things you want to do? Select Number: 10 Physical Discomfort or Pain: How confident are you that you can keep the physical discomfort or pain of your disease from interfering with the things you want to do? Select Number: 10 Emotional Distress: How confident are you that you can keep the emotional distress caused by your disease from interfering with the things you want to do? Select Number: 10 Other Symptoms or Health Problems: How confident are you that you can keep other symptoms or health problems from interfering with the things you want to do? Select Number: 10 Different Tasks and Activities: How confident are you that you can do the different tasks and activities needed to manage your health condition so as to reduce your need to see a doctor? Select Number: 10 Medication: How confident are you that you can do things other than just taking medication to reduce how much your illness affects your everyday life? Select Number: 10 Total Score:: 10 Nutrition Survey - Nutrition Survey Initial Have you lost >10 lbs over the past 2 months without trying?: No Are you following a special diet at home for diabetes, low fat, or low salt?: Yes Are you interested in meeting with a dietitian for help understanding your diet?: No Do you eat less than 3 meals a day?: Yes Do you eat fatty meats (mcdonald, sausage, ribs, etc), fried foods, desserts, large amounts of salad dressings, margarine, butter, or cheese most days?: No Do you have food allergies? [Enter types in comment field]: Yes - seafood Do you eat in restaurants more than 3 times a week?: No Do you season food with salt, seasoning salt, or garlic salt?: No Do you used canned, boxed, frozen meals, or soups, seasoning packets?: No Total Score:: 3
[2022-04-10 14:32] VITALS: BP 162/80; PULSE 77; RESP 14; TEMP 36.6; O2SAT 98; BMI 27.4
[2022-04-10 15:16] VITALS: BP 168/70; BMI 27.4
== END | disposition home or self-care (01) ==
LOC: CR 13:16
PROVIDERS: PCP Family Medicine; Referring Provider Internal Medicine Cardiovascular Disease; Visit Provider Internal Medicine Cardiovascular Disease
DX: E78.2 Mixed hyperlipidemia (principal); I10 Essential (primary) hypertension; K22.70 Barrett's esophagus without dysplasia

== ENCOUNTER 2022-04-21 10:30 | Outpatient (RCR) | payer MEDICARE, SELFPAY ==
[2022-04-10 14:20] VITALS: BMI 27.4
== END 2022-04-22 23:59 ==
LOC: CR 10:30
PROVIDERS: PCP Family Medicine; Referring Provider Internal Medicine Cardiovascular Disease; Visit Provider Internal Medicine Cardiovascular Disease
DX: I25.10 Atherosclerotic heart disease of native coronary artery without angina pectoris (principal); R07.9 Chest pain, unspecified; Z95.5 Presence of coronary angioplasty implant and graft
CPT/HCPCS: 93798

== ENCOUNTER 2022-05-22 10:30 | Outpatient (RCR) | payer MEDICARE, SELFPAY ==
[2022-04-10 15:16] VITALS: BMI 27.4
== END 2022-05-23 23:59 ==
LOC: CR 10:30
PROVIDERS: PCP Family Medicine; Referring Provider Internal Medicine Cardiovascular Disease; Visit Provider Internal Medicine Cardiovascular Disease
DX: I25.10 Atherosclerotic heart disease of native coronary artery without angina pectoris (principal); R07.9 Chest pain, unspecified; Z95.5 Presence of coronary angioplasty implant and graft
CPT/HCPCS: 93798; 97802

== ENCOUNTER 2022-06-19 10:30 | Outpatient (RCR) | payer MEDICARE, SELFPAY ==
[2022-04-10 15:16] VITALS: BMI 27.4
== END 2022-06-20 23:59 ==
LOC: CR 10:30
PROVIDERS: PCP Family Medicine; Referring Provider Internal Medicine Cardiovascular Disease; Visit Provider Internal Medicine Cardiovascular Disease
DX: I25.10 Atherosclerotic heart disease of native coronary artery without angina pectoris (principal); R07.9 Chest pain, unspecified; Z95.5 Presence of coronary angioplasty implant and graft
CPT/HCPCS: 93798

== ENCOUNTER → 2022-06-22 | Outpatient (CLI) | payer MEDICARE, SELFPAY ==
[2022-04-10 15:16] VITALS: BMI 27.4
--- NOTE | 2022-06-22 09:18 | CDU_ITS ---
Reason For Study: stenosis Rt. Velocities/BP Lt. Velocities/BP Prox CCA 108.4/16.3 cm/sec. Prox CCA 99.2/12.4 cm/sec. Mid CCA 107.2/15.1 cm/sec. Mid CCA 94.9/14.6 cm/sec. Dist CCA 85.1/16.3 cm/sec. Dist CCA 93.8/15.7 cm/sec. Prox ICA 95.5/18.8 cm/sec. Prox ICA 135.7/22.5 cm/sec. Mid ICA 86.4/17.0 cm/sec. Mid ICA 104.7/17.6 cm/sec. Dist ICA 117.4/20.6 cm/sec. Dist ICA 108.4/20.0 cm/sec. Rt. ICA/CCA = 1.1. Lt. ICA/CCA = 1.4. Prox ECA 209.2/22.6 cm/sec. Prox ECA 270.3/24.1 cm/sec. Rt. Vert. 55.3/10.2 cm/sec. Lt. Vert. 41.9/6.0 cm/sec. Right Extracranial There is heterogeneous, irregular atherosclerotic plaque noted in the right common carotid artery. There is heterogeneous, irregular atherosclerotic plaque noted in the right internal carotid artery. There is heterogeneous, irregular atherosclerotic plaque noted in the right external carotid artery. Antegrade flow is noted in the right vertebral artery. Left Extracranial There is homogeneous, smooth atherosclerotic plaque noted in the left common carotid artery. There is heterogeneous, irregular atherosclerotic plaque noted in the left internal carotid artery. There is heterogeneous, irregular atherosclerotic plaque noted in the left external carotid artery. Antegrade flow is noted in the left vertebral artery. Procedure Carotid Duplex [id number]. This is a Carotid Duplex examination using B-mode, color flow and specral Doppler. The exam was diagnostic. Exam performed in department. VL/Carotid Duplex Ultrasound Interpretation Summary Irregular calcific plaque at the proximal right internal carotid artery with le ss than 50% stenosis Greater than 50% stenosis right external carotid artery Mild irregular plaque at the proximal left internal carotid artery with 50 to 6 9% stenosis Greater than 50% stenosis left external carotid artery Patent and antegrade vertebral arteries bilaterally Minimal advancement of disease involving the right external carotid artery from a previous examination of July 02, 2017 Ordering Physician: Viky Givens Referring Physician: Del Barroso Performed By: Darinel Allen RVT
== END | disposition home or self-care (01) ==
PROVIDERS: PCP Family Medicine; Referring Provider Internal Medicine Cardiovascular Disease; Visit Provider Family Medicine
DX: R09.89 Other specified symptoms and signs involving the circulatory and respiratory systems (principal)
CPT/HCPCS: 93880

== ENCOUNTER 2022-07-14 10:30 | Outpatient (RCR) | payer MEDICARE, SELFPAY ==
[2022-04-10 15:16] VITALS: BMI 27.4
--- NOTE | 2022-07-07 11:11 | PCM.CR.ITP ---
Diagnosis Exercise - 90-day Assessment - Visit Date of Eval: 07/07/22 Session #:: 33 - Physician Prescribed Exercise Modalities: Treadmill, NuStep, SciFit Frequency: 3x/week for 12 weeks [36 sessions] Intensity: 60-80% of age predicted maximum heart rate reserve Current METSs:: 5 Target Heart Rate:: 104-118 Current RPE:: 13 Maximum Excercise HR:: 122 Resting Blood Pressure: 152/80 Maximum Exercise Blood Pressure: 152/80 EKG Type: NSR/ sinus arrythmia to ST with T wave inversion and rare PAC - Outcomes & Goals Goals:: Verbalizes understanding of THR, RPE & goal METS by session 6, Documents in home exercise log/reports 30 min aerobic 5 day/wk by DC, Demonstrates accurate pulse taking by DC, Other additional outcome/goals: see below - Intervention & Plan Exercise Program Goals: Instruct on personal THR & RPE, Instruct on MET level & personal MET goal, Show patient to take own pulse /validate performance until accurate, Instruct on home exercise, Other additional plan/int - 30-day Reassessments 30 day Reassessments:: Met - Physical Activity Home Exercise Physical Activity - Home Exercise: Safe Exercise, Warm-up, Self-monitoring, Cool-Down, Home Exercise > 30 min Daily, Sitting Time <3 hours/daily - Outcomes & Goals Outcomes/Goals: Demonstrates correct Warm-up/exercise Cool-Down (S3) if = 2.5 METs, Verbalizes symptoms of exercise intolerance by Session 3 (S3), Demonstrate safe equipment use (S3) & follows exercise prescrition (6), Other: See below - Intervention & Plan Plan/Intervention: Instruct warm-up & cool-down if exercising at > 2 METs, Instruct on symptoms of exercise intolerance & actions to take, Instruct & monitor on saf, Assess intial functional capacity & safety risk, Other See below - 30-day Reassessments 30 day Reassessments:: Met Nutrition - Initial Assessment Nutrition - 30-Day Assessment Nutrition - 60-Day Assessment Nutrition - 90-Day Assessment - Program Goals Nutrition Program Goals: LDL <100 optimal. 100 - 129 Near optimal. 130 - 159 Borderline High. 160 - 189 High. Total Cholesterol <200 desirable. 200 - 239 Borderline High. >/= 240 High. HDL < 40 Low >/=60 High. Triglycerides <150 desirable. <199 optimal. VlDL 5 - 40. HgbA1C <7%. BMI <25 Patient has diagnosis of Hyperlipidemia (ICD E78)?: No - Visit Date of Assessment:: 07/07/22 Session #:: 33 - Cholesterol/Lipids (Other Core Measures) Determine presence & major risk factors that modify LDL goal: Hypertension or hypertensive medication, Low HDL cholesterol <40 mg/dL*, Family history of premature CHD in Male < 55 years: female <65 yearsFa, Age men > 45 years; women >/= 55 years Outcomes/Goals: Pt IDs own risk factors & lifestyle modifications by Session 10, Verbalizes symptoms of angina & response by session 3., Pt independently manages, Other Additional Outcomes/Goals: Intervention/Plan: Advocate for lipid panel cholesterol medication if applicable, Instruct on personal lipid levels & lipid goals/NCEP guidelines, Instruct on cholesterol, Other additional plan/int Referral to dietitian:: Yes - Diabetes (Other Core Measures) Diabetes Type: Not Applicable - Weight Mgt (Other Care) Height: 5 ft 2 in Weight:: 67.358 kg BMI: 27.1 Diagnosis Overweight/Obesity BMI> 30% ICD-10 E66: No Diagnosis High BMI/Morbid Obesity BMI> 35% ICD-10 Z68: No Outcomes/Goals: Pt sets, maintains & shows weight loss goal & trend during rehab, Other additional outcomes/goals Intervention/Plan: Instruct on ideal BMI & set weight loss goal w/patient, Assist pt to ID & incorporate diet changes for weight loss by S9, Refer to Structured Weight Loss program as appropriate, Encourage goal of using 250-300dcal per session for weight loss, Other additional plan/interventions 30 day Reassessments:: Met - Healthy Eating Habits Will attend diet classes:: Yes Outcomes/Goals:: Consume diet rich in vegs,fruits,whole grain/high fiber,fish,lean meat, Limit sat/trans fats,cholesterol & added salts & sugars, Other additional outcome/goals: Intervention/Plan:: Assess current eating habits, Other Additional plan/interventions 30-day Reassessments:: Met - Education Gave educational materials for:: Signs & symptoms of hypoglycemia, Signs & symptoms of hyperglycemia, Relate diabetes to coronary artery disease, Healthy eating Nutrition - Final Assessment Core - Initial Assessment Core - 30-Day Assessment Core - 60-Day Assessment Core - 90 Day Assessment - Visit Date of Eval: 07/07/22 Session #:: 33 - Medication Compliance Preventative Medication(s):: Aspirin, Ticagrelor/P2Y12 inhibitor, Beta keshav Doesn?t believe in the benefits of treatment?: No Believes medications are unnecessary or harmful?: No Has a concern about medication side effects?: No Expresses concern over the cost of medications?: No Outcomes/Goals: Verbalizes medications,desired effect & common side effects @ DC, Pt self-reports following medication regimen, Keeps card in wallet w/medications listed by DC, Other additional outcome/goals: Interventions/plans: Instruct on medication effects & side effects, Review medication list w/patient every two weeks, Instruct importance of taking meds as ordered & assist problem solving, Other additional 30-day Reassessments:: Met - Tobacco Use Tobacco Use: Non-smoker 30-day Reassessments:: Met - Hypertension Hypertension Diagnosis:: Hypertension ICD-10 I10 Resting Blood Pressure:: 152/80 [place] [employer] Hypertension Guidelines: [place] [employer] Hypertension Guidelines. Normal BP Less than 120/80. Elevated BP 120/80. Hypertension Stage 1: BP 130-139/80-89. Hypertesnion Stage 2: BP 140 or higher/90 or higher. Hypertension Crisis: BP higher than 180/120 Peak Exercise Blood Pressure:: 152/80 Outcomes/Goals: Able to verbalize/achieve optimal blood pressure <130/80, Incorporates diet changes & exercise for blood pressure control by DC, Other additional outcomes/goals Interventions/plan: Instruct on optimal blood pressure, hypertension & medications, Instruct on effects of sodium, alcohol, stress, exercise &hypertension, Other additional plan/interventions 30 day Reassessments:: Progressing - encouraged to take meds - Tobacco Cessation Referral Smoking Cessation Referral:: No Individual Education/Counseling:: No Education Schedule Given:: Yes Core - Final Assessment Psychosocial - Initial Assess Psychosocial - 30-Day Assess Psychosocial - 60-Day Assess Psychosocial - 90-Day Assess - VIsit Date of Eval: 07/07/22 Session #:: 33 Psychosocial - Final Assessmen Patient Health Questionnaire 90-Day Re-eval Assessment 1. Little interest or pleasure in doing things: Not at all 2. Feeling down, depressed, or hopeless: Not at all 3. Trouble falling or staying asleep, or sleeping too much: Not at all 4. Feeling tired or having little energy: Not at all 5. Poor appetite or overeating: Not at all 7. Trouble concentrating on things, such as reading the newspaper or watching television: Not at all 8. Moving or speaking so slowly that other people could have noticed. Or the opposite - being so fidgety or restless that you have been moving around a lot more than usual: Not at all 9. Thoughts that you would be better off , or of hurting yourself in some way: Not at all How difficult have these problems made it for you to do your work, take care of things at home, or get along with other people?: Not difficult at all Total Score: 0 Self-Efficacy 90-Day Re-eval Assessment We would like to know how confident you are in doing certain activities. Please select your confidence level for:: Select your confidence level for the following using the scale 1-10 where 1 is not at all confident and 10 is totally confident. Your score is the average of all 6 responses. Fatigue: How confident are you that you can keep the fatigue caused by your disease from interfering with the things you want to do? Select Number: 10 Physical Discomfort or Pain: How confident are you that you can keep the physical discomfort or pain of your disease from interfering with the things you want to do? Select Number: 10 Emotional Distress: How confident are you that you can keep the emotional distress caused by your disease from interfering with the things you want to do? Select Number: 10 Other Symptoms or Health Problems: How confident are you that you can keep other symptoms or health problems from interfering with the things you want to do? Select Number: 10 Different Tasks and Activities: How confident are you that you can do the different tasks and activities needed to manage your health condition so as to reduce your need to see a doctor? Select Number: 10 Medication: How confident are you that you can do things other than just taking medication to reduce how much your illness affects your everyday life? Select Number: 10 Total Score:: 10 Nutrition Survey
[2022-07-07 11:21] VITALS: BP 152/80; BMI 27.1
== END 2022-07-21 23:59 ==
LOC: CR 10:30
PROVIDERS: PCP Family Medicine; Referring Provider Internal Medicine Cardiovascular Disease; Visit Provider Internal Medicine Cardiovascular Disease
DX: I25.10 Atherosclerotic heart disease of native coronary artery without angina pectoris (principal); R07.9 Chest pain, unspecified; Z95.5 Presence of coronary angioplasty implant and graft
CPT/HCPCS: 93798

== ENCOUNTER → 2022-11-23 | Outpatient (CLI) | payer MEDICARE, SELFPAY ==
[2022-07-07 11:21] VITALS: BMI 27.1
--- NOTE | 2022-11-23 09:47 | ECHOD_ITS ---
Reason For Study: HTN Procedure This was a 2D Doppler, Color Flow transthoracic echocardiogram. Exam performed in department. Left Ventricle Normal LV size. Left ventricular systolic function is normal. The estimated ejection fraction is 60 %. Stage 1 diastolic dysfunction. No regional wall motion abnormalities noted. Right Ventricle Normal RV size. Normal systolic function. Atria Normal left atrium. Normal right atrium. Mitral Valve There is mild to moderate mitral annular calcification. Tricuspid Valve Normal tricuspid valve. Mild (1+) tricuspid valve insufficiency. Pulmonary artery systolic pressure is 38 mmHg. Aortic Valve Normal aortic valve. Pulmonic Valve Normal pulmonic valve. Great Vessels Normal aortic root. The pulmonary artery is normal size. Normal inferior vena cava. Pericardium/Pleural No pericardial effusion. MMode/2D Measurements & Calculations LVIDd: 3.8 cm IVSd: 1.1 cm Ao root diam: 3.0 cm LVIDs: 2.6 cm LVPWd: 1.2 cm FS: 31.6 % LAV(MOD-bp): 36.1 ml LVAd ap4: 21.0 cm2 SV(MOD-sp4): 34.0 ml LAV(MOD-bp) Indexed: 22.4 ml/m2 LVLd ap4: 6.7 cm LAV(MOD-sp2): 43.1 ml EDV(MOD-sp4): 53.8 ml LAV(MOD-sp4): 25.1 ml EDV(sp4-el): 55.7 ml LVAs ap4: 11.2 cm2 LVLs ap4: 5.3 cm ESV(MOD-sp4): 19.8 ml ESV(sp4-el): 19.8 ml EF(MOD-sp4): 63.2 % EF(sp4-el): 64.4 % SV(sp4-el): 35.8 ml LA A4 area: 11.6 cm2 LA dimension(2D): 3.4 cm RA A4 area: 10.5 cm2 TAPSE: 2.3 cm Time Measurements MV dec time: 0.21 sec Doppler Measurements & Calculations MV E max benjamin: 103.7 cm/sec Lat Peak E' Benjamin: 8.3 cm/sec Med Peak E' Benjamin: 8.5 cm/sec MV A max benjamin: 136.0 cm/sec E/E' lat: 12.5 E/E' med: 12.2 MV E/A: 0.76 MV V2 max: 141.9 cm/sec Ao V2 max: 150.8 cm/sec MV max P.1 mmHg MV dec slope: 501.1 cm/sec2 Ao max P.1 mmHg MV V2 mean: 80.7 cm/sec Ao V2 mean: 104.0 cm/sec MV mean P.0 mmHg Ao mean P.9 mmHg MV V2 VTI: 43.9 cm Ao V2 VTI: 39.5 cm AV (velocity ratio): 0.80 LV V1 max: 128.5 cm/sec MR max benjamin: 493.5 cm/sec PA V2 max: 86.8 cm/sec LV V1 max P.6 mmHg MR max P.4 mmHg PA V2 mean: 63.6 cm/sec LV V1 mean P.6 mmHg LV V1 mean: 89.7 cm/sec LV V1 VTI: 31.5 cm TR max benjamin: 294.3 cm/sec TR max P.7 mmHg ECHO/Echo Complete Interpretation Summary Normal LV size. Left ventricular systolic function is normal. The estimated ejection fraction is 60 %. Stage 1 diastolic dysfunction. Mild (1+) tricuspid valve insufficiency. Pulmonary artery systolic pressure is 38 mmHg. Ordering Physician: Katie Long Referring Physician: Katie Long Performed By: Silke Patterson RCS
== END | disposition home or self-care (01) ==
LOC: CVS 09:45
PROVIDERS: PCP Family Medicine; Referring Provider Nurse Practitioner Gerontology; Visit Provider Nurse Practitioner Gerontology
DX: I48.0 Paroxysmal atrial fibrillation (principal); I10 Essential (primary) hypertension
CPT/HCPCS: 93306

== ENCOUNTER → 2023-09-14 | Outpatient (CLI) | payer MEDICARE, SELFPAY ==
[2022-07-07 11:21] VITALS: BMI 27.1
[2023-09-14 10:28] LABS: Absolute Lymphocyte Count 2.04 X10^3/uL (0.83-4.51); Absolute Neutrophil Count 7.1 X10^3/uL (2.0-7.7); Eosinophil# 0.39 X10^3/uL; Eosinophils% 3.8 % (0-5); Hematocrit 37.9 % (37-47); Hemoglobin 12.4 g/dL (12.0-15.0); Lymphocyte # 2.04 X10^3/ul (0.83-4.51); Lymphocyte % 19.8 % (19-41); Mean Corp Hgb Conc 32.7 g/dL (32-36); Mean Corpuscular Hgb 33.1 pg (27.0-32.0); Mean Corpuscular Volume 101.1 fL (81-99); Mean Platelet Vol. 10.3 fl (6.2-12.0); Monocyte# 0.61 X10^3/uL; Monocyte% 5.9 % (0-10); NRBC Flagged by Analyzer 0.4 % (0-5); Neutrophil # 7.08 X10^3/uL (2.7-7.7); Neutrophil % 68.9 % (47-70); Platelet Count 441 K/mm3 (150-450); RBC Distribution Width CV 15.9 % (11.6-14.6); Red Blood Count 3.75 M/mm3 (4.2-5.4); White Blood Count 10.3 K/mm3 (4.4-11.0)
[2023-09-14 10:59] LABS: Anion Gap 7 (5-15); BUN 16 mg/dL (7-18); BUN/Creat Ratio 17.8 RATIO (10-20); Calcium,Total 9.4 mg/dL (8.5-10.1); Chloride 107 mmol/L (98-107); EST Glomerular Filtration Rate 64 mL/min (>60); Est Glom Filt Rate - Afr Amer 77 mL/min (>60); Glucose 109 mg/dL (74-106); Potassium 3.7 mmol/L (3.5-5.1); Sodium Level 139 mmol/L (136-145)
[2023-09-14 13:38] LABS: BNP,B-Type NATRIURETIC PEPTIDE 89.3 pg/mL (0-100)
== END | disposition home or self-care (01) ==
LOC: LAB 09:45
PROVIDERS: PCP Family Medicine; Referring Provider Physician Assistant Medical; Visit Provider Physician Assistant Medical
DX: R06.09 Other forms of dyspnea (principal); I48.0 Paroxysmal atrial fibrillation; Z95.5 Presence of coronary angioplasty implant and graft; I10 Essential (primary) hypertension; E78.2 Mixed hyperlipidemia
CPT/HCPCS: 36415; 80048; 83880; 85025

== ENCOUNTER → 2023-09-27 | Outpatient (CLI) | payer MEDICARE, SELFPAY ==
[2022-07-07 11:21] VITALS: BMI 27.1
--- NOTE | 2023-09-27 12:35 | CDU_ITS ---
Reason For Study: Carotid Bruit Rt. Velocities/BP Lt. Velocities/BP Prox CCA 112.1/16.3 cm/sec. Prox CCA 135.9/13.0 cm/sec. Mid CCA 117.0/17.6 cm/sec. Mid CCA 102.1/18.1 cm/sec. Dist CCA 99.8/17.6 cm/sec. Dist CCA 107.6/14.4 cm/sec. Prox ICA 90.4/16.7 cm/sec. Prox ICA 142.3/20.5 cm/sec. Mid ICA 114.9/16.3 cm/sec. Mid ICA 65.4/7.8 cm/sec. Dist ICA 70.9/15.9 cm/sec. Dist ICA 78.9/8.9 cm/sec. Rt. ICA/CCA = 1.0. Lt. ICA/CCA = 1.4. Prox ECA 214.1/6.7 cm/sec. Prox ECA 286.0/0.0 cm/sec. Rt. Vert. 40.4/13.4 cm/sec. Lt. Vert. 47.2/7.6 cm/sec. Right Extracranial There is heterogeneous, irregular atherosclerotic plaque noted in the right common carotid artery. There is heterogeneous, smooth atherosclerotic plaque noted in the right internal carotid artery. The right internal carotid artery is very tortuous. There is heterogeneous, irregular atherosclerotic plaque noted in the right external carotid artery. Antegrade flow is noted in the right vertebral artery. Left Extracranial There is homogeneous, smooth atherosclerotic plaque noted in the left common carotid artery. There is heterogeneous, irregular atherosclerotic plaque noted in the left internal carotid artery. The left internal carotid artery is very tortuous. There is heterogeneous, irregular atherosclerotic plaque noted in the left external carotid artery. Antegrade flow is noted in the left vertebral artery. Procedure Carotid Duplex [id number]. This is a Carotid Duplex examination using B-mode, color flow and specral Doppler. The exam was diagnostic. Exam performed in department. VL/Carotid Duplex Ultrasound Interpretation Summary Mild (<50%) stenosis right extracranial internal carotid. Moderate (50-69%) stenosis left extracranial internal carotid. Patent and antegrade vertebrals bilaterally. Ordering Physician: Chasidy Montero Referring Physician: Viky Givens Performed By: Carlos Hunt RVT and Student
--- NOTE | 2023-09-27 12:40 | RAD_ITS ---
INDICATION: JUNIOR EXAMINATION/TECHNIQUE: X-RAY - XR Chest 2 Views COMPARISON: No previous relevant examinations available for comparison.. FINDINGS: LIFE-SUPPORT AND LINES: 1. None HEART AND VESSELS: The cardiac silhouette, pulmonary vasculature have normal appearance. No evidence of congestive failure. LUNGS AND PLEURAL SPACES: Shallow inspiration crowding of bronchovascular markings. No focal infiltrate or consolidation. No pulmonary mass is noted. MEDIASTINUM AND HILAR REGIONS: No masses adenopathy noted. No areas of calcification. Visualized upper airway is normal in position. BONY ELEMENTS: No acute bony changes noted. RAD/Chest PA and Lateral IMPRESSION: 1. Shallow inspiration crowding of bronchovascular markings. 2. No focal infiltrate, consolidation, congestive failure, or effusion. Electronically Signed: Clement Quinones MD at 20:03 EDT ,
== END | disposition home or self-care (01) ==
LOC: CVS 12:34
PROVIDERS: PCP Family Medicine; Referring Provider Physician Assistant Medical; Visit Provider Physician Assistant Medical
DX: R09.89 Other specified symptoms and signs involving the circulatory and respiratory systems (principal); I48.0 Paroxysmal atrial fibrillation; Z95.5 Presence of coronary angioplasty implant and graft; I10 Essential (primary) hypertension; E78.2 Mixed hyperlipidemia
CPT/HCPCS: 71046; 93225; 93226; 93880

== ENCOUNTER → 2023-10-11 | Outpatient (CLI) | payer MEDICARE, SELFPAY ==
[2022-07-07 11:21] VITALS: BMI 27.1
--- NOTE | 2023-10-11 15:57 | STRESSREP_ITS ---
Stress Test Report Date: 10/11/2023 Procedure: Pharmacologic stress nuclear imaging study Indications: Dyspnea Consent: Per the patient Procedure: The patient underwent pharmacologic (Regadenoson) evaluation with a peak heart rate of 103 beats per minute (75%predicted maximal heart rate) and a peak blood pressure of 142/70 mmHg. The baseline ECG demonstrated normal sinus rhythm, nonspecific ST-T changes. EKG during lexiscan infusion revealed no significant ischemic changes. EKG post infusion revealed no significant ischemic changes [There were no cardiac dysrhythmias pretest, during pharmacologic infusion, or recovery]. [There was no complaint of chest discomfort during pharmacologic infusion or recovery]. The examination was discontinued secondary to completion of protocol. Impression: 1. Lexiscan stress test test is negative for Lexiscan infusion induced EKG changes of ischemia. 2. Lexiscan stress test test is negative for Lexiscan infusion induced chest pain. 3. Results of the nuclear portion of the test is as below Myocardial perfusion imaging study: Technique: The patient was injected with 11.6 millicuries of technetium 99m Cardiolite and subsequently rest SPECT Cardiolite nuclear imaging was obtained in the horizontal long, vertical long, and short axis views. The patient underwent pharmacologic [Regadenoson 0.4mg] evaluation. Please see above for details. The patient was injected with 33.7 millicuries of technetium 99m Cardiolite and subsequently stress SPECT Cardiolite nuclear imaging was obtained in the horizontal long, vertical long, and short axis views. A gated Cardiolite study at peak stress was obtained. Interpretation: Rest and stress SPECT Cardiolite nuclear imaging status post realignment, normalization, and attenuation correction demonstrate no evidence of significant ischemia or infarction. Gated images reveal no significant regional wall motion abnormalities. The reported LVEF is greater than 70%. Impression: 1. There is no evidence of significant ischemia or infarction. 2. Estimated ejection fraction is greater than 70%. This note was generated with [employer] software. It may contain incorrect words, spelling, and punctuation that were not noted in checking the note before signing.
== END | disposition home or self-care (01) ==
PROVIDERS: PCP Family Medicine; Referring Provider Physician Assistant Medical; Visit Provider Physician Assistant Medical
DX: R06.09 Other forms of dyspnea (principal); I48.0 Paroxysmal atrial fibrillation; I10 Essential (primary) hypertension; E78.2 Mixed hyperlipidemia; Z95.5 Presence of coronary angioplasty implant and graft
CPT/HCPCS: 78452; 93017; A9500; A4216

== ENCOUNTER → 2023-10-26 | Outpatient (CLI) | payer MEDICARE, SELFPAY ==
[2022-07-07 11:21] VITALS: BMI 27.1
[2023-10-26 11:26] LABS: Iron 81 ug/dL (50-170); Iron Binding Capacity,Total 381 ug/dL (250-450); PERCENT IRON SATURATION 21.3 % (15.0-55.0)
== END | disposition home or self-care (01) ==
LOC: LAB 09:04
PROVIDERS: PCP Family Medicine; Referring Provider Physician Assistant Medical; Visit Provider Physician Assistant Medical
DX: R06.09 Other forms of dyspnea (principal)
CPT/HCPCS: 36415; 83540; 83550